=== PATIENT | female | born 1990 | race African-American/Black ===

== ENCOUNTER 2016-09-15 00:28 | Emergency (ER) | payer SELFPAY ==
[2016-09-15 00:45] VITALS: BP 186/122
== END 2016-09-15 00:50 | disposition left against medical advice (07) ==
LOC: ER 00:28
DX: Z53.21 Procedure and treatment not carried out due to patient leaving prior to being seen by health care provider (principal)

== ENCOUNTER 2017-02-03 11:05 | Emergency (ER) | payer OTHER, MEDICAID ==
[2017-02-03] MEDS ORDERED: METOCLOPRAMIDE HCL INJ/PF 10 MG/2 ML SDV IV ONE (11:45)
[2017-02-03] MEDS ORDERED: DIPHENHYDRAMINE HCL 50 MG/ML VIAL IV ONE (11:45)
[2017-02-03] MEDS ORDERED: NORMAL SALINE 1000 ML 1,000 ML IV PRN (11:45)
--- NOTE | 2017-02-03 11:50 | ER Document Report ---
ED Medical Screen (RME) - General Chief Complaint: Headache >24 hrs old Stated Complaint: ABDONMIAL PAIN Time Seen by Provider: 02/03/17 11:25 Mode of Arrival: Ambulatory Information source: Patient TRAVEL OUTSIDE OF THE [place] IN LAST 30 DAYS: No - HPI Patient complains to provider of: headache, elevated BP Onset: Other - 3 days Onset/Duration: Persistent Quality of pain: Achy, Fullness, Pressure Severity: Moderate Pain Level: 3 Associated Symptoms: Nausea Recently seen / treated by doctor: Yes Notes: 02/03/17 11:48 Patient is a 26-year-old female who is , currently 19 weeks and 5 days , by dates, presents to the emergency room complaining of headache 3 days duration with abdominal cramping, no vaginal bleeding, nausea that started this morning, no vomiting, no fever, no dysuria or hematuria, no vaginal bleeding, she has a history of elevated blood pressure during in the past but no history of hypertension when not , she is currently taking labetalol twice daily, blood pressure at time of triage is 177/98 Patient was briefly discussed with Dr. Nasra Myers, CLOTHES MARKER, who reports that she is not technically diagnosed with preeclampsia because she is under 20 weeks , recommend patient's headache be treated in the emergency room - Related Data Allergies/Adverse Reactions: No Known Allergies Allergy (Verified 11/06/15 13:14) Past Medical History - Social History Frequency of alcohol use: None Drug Abuse: None - Past Medical History Cardiac Medical History: Reports: Hx Hypertension Renal/ Medical History: Reports: Hx Ovarian Cysts. 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
[2017-02-03 12:35] LABS: APPEARANCE,URINE SLIGHTLY-CLOUDY; BILIRUBIN,URINE NEGATIVE (NEGATIVE); GLUCOSE, URINE >=500 mg/dL (NEGATIVE); KETONES,URINE NEGATIVE (NEGATIVE); LEUKOCYTE ESTERASE,URINE NEGATIVE (NEGATIVE); NITRITE,URINE NEGATIVE (NEGATIVE); PROTEIN,URINE NEGATIVE (NEGATIVE); URINE SPECIFIC GRAVITY 1.011; UROBILINOGEN,URINE NEGATIVE mg/dL (<2.0)
[2017-02-03 12:37] LABS: ABSOLUTE BASOPHILS # (AUTO) 0.1 10^3/uL (0.0-0.2); ABSOLUTE EOSINOPHILS # (AUTO) 0.1 10^3/uL (0.0-0.6); ABSOLUTE MONOCYTES (AUTO) 1.2 10^3/uL (0.1-1.4); BASOPHILS % (AUTO) 0.3 % (0-2); EOSINOPHILS % (AUTO) 0.8 % (0-6); HEMATOCRIT 35.9 % (36.0-47.0); HEMOGLOBIN 11.9 g/dL (12.0-15.5); HGB HCT DIFFERENCE -0.2; LYMPHOCYTES % (AUTO) 11.3 % (13-45); MEAN CORPUSCULAR HEMOGLOBIN 28.3 pg (27.0-33.4); MEAN CORPUSCULAR VOLUME 86 fl (80-97); MONOCYTES % (AUTO) 6.9 % (3-13); RED BLOOD COUNT 4.19 10^6/uL (3.72-5.28); RED CELL DISTRIBUTION WIDTH 14.1 % (11.5-14.0); SEGMENTED NEUTROPHILS % (AUTO) 80.7 % (42-78); WHITE BLOOD COUNT 17.3 10^3/uL (4.0-10.5)
[2017-02-03 12:55] LABS: ALANINE AMINOTRANSFERASE 40 U/L (9-52); ALBUMIN 3.7 g/dL (3.5-5.0); ALKALINE PHOSPHATASE 56 U/L (38-126); ANION GAP 12 (5-19); ASPARTATE AMINO TRANSFERASE 24 U/L (14-36); BILIRUBIN,DIRECT 0.3 mg/dL (0.0-0.4); BILIRUBIN,TOTAL 0.4 mg/dL (0.2-1.3); BLOOD UREA NITROGEN 6 mg/dL (7-20); CALCIUM 9.4 mg/dL (8.4-10.2); CARBON DIOXIDE 21 mmol/L (22-30); CHLORIDE 103 mmol/L (98-107); CREATININE RESULT 0.41 mg/dL (0.52-1.25); GLUCOSE 111 mg/dL (75-110); LDH 417 U/L (313-618); POTASSIUM 4.2 mmol/L (3.6-5.0); SODIUM 136.4 mmol/L (137-145); TOTAL PROTEIN 7.1 g/dL (6.3-8.2); URIC ACID 4.2 mg/dL (2.5-6.2)
--- NOTE | 2017-02-03 13:38 | ER Document Report ---
ED General - General Chief Complaint: Headache >24 hrs old Stated Complaint: ABDONMIAL PAIN Time Seen by Provider: 02/03/17 11:25 Mode of Arrival: Ambulatory TRAVEL OUTSIDE OF THE [place] IN LAST 30 DAYS: No - HPI Patient complains to provider of: Headache abdominal pain elevated blood pressure Notes: Patient is coming in for headache abdominal pain elevated blood pressure. Patient is approximately 19 weeks and 5 days. Patient is a patient states history of elevated blood pressure and preeclampsia of her first . Patient is currently on labetalol 200 mg twice a day for blood pressure issues. Patient states global headache no history of trauma. Patient has been trying Tylenol at home for her headache however there is no resolution therefore came to the ER. - Related Data Allergies/Adverse Reactions: No Known Allergies Allergy (Verified 11/06/15 13:14) Past Medical History - General Information source: Patient - Social History Smoking Status: Never Smoker Frequency of alcohol use: None Drug Abuse: None Family History: CVA, DM, Hyperlipidemia, Hypertension. denies: Arthritis, CAD, COPD Patient has suicidal ideation: No Patient has homicidal ideation: No - Past Medical History Cardiac Medical History: Reports: Hx Hypertension Renal/ Medical History: Reports: Hx Ovarian Cysts. 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 - Immunizations Immunizations up to date: Yes Hx Diphtheria, Pertussis, Tetanus Vaccination: Yes - 2009 Review of Systems - Review of Systems Constitutional: No symptoms reported EENT: No symptoms reported Cardiovascular: No symptoms reported Respiratory: No symptoms reported Gastrointestinal: No symptoms reported Genitourinary: No symptoms reported Female Genitourinary: No symptoms reported Musculoskeletal: No symptoms reported Skin: No symptoms reported Hematologic/Lymphatic: No symptoms reported Neurological/Psychological: Headaches Physical Exam - Vital signs Vitals: Temp Pulse Resp BP Pulse Ox 98.1 F 95 18 177/80 H 100 02/03/17 11:20 02/03/17 11:20 02/03/17 11:20 02/03/17 11:20 02/03/17 11:20 Interpretation: Normal - General General appearance: Appears well, Alert - HEENT Head: Normocephalic, Atraumatic Eyes: Normal Pupils: PERRL - Respiratory Respiratory status: No respiratory distress Chest status: Nontender Breath sounds: Normal Chest palpation: Normal - Cardiovascular Rhythm: Regular Heart sounds: Normal auscultation Murmur: No - Abdominal Inspection: Normal, Gravid female Distension: No distension Bowel sounds: Normal Tenderness: Nontender Organomegaly: No organomegaly - Back Back: Normal, Nontender - Extremities General upper extremity: Normal inspection, Nontender, Normal color, Normal ROM , Normal temperature General lower extremity: Normal inspection, Nontender, Normal color, Normal ROM , Normal temperature, Normal weight bearing. No: Aman's sign - Neurological Neuro grossly intact: Yes Cognition: Normal Orientation: AAOx4 [place] Coma Scale Eye Opening: Spontaneous [place] Coma Scale Verbal: Oriented [place] Coma Scale Motor: Obeys Commands [place] Coma Scale Total: 15 Speech: Normal Motor strength normal: LUE, RUE, LLE, RLE Sensory: Normal - Psychological Associated symptoms: Normal affect, Normal mood - Skin Skin Temperature: Warm Skin Moisture: Dry Skin Color: Normal Course - Re-evaluation Re-evalutation: 02/03/17 18:32 In for evaluation of headache hypertension patient is also . Bedside ultrasound showed heart rate 143. Patient headache resolved after IV medications. Blood pressure has decreased to 160 systolic. I did discuss lab results with [facility] and they will follow-up with the patient tomorrow morning 02/03/17 18:34 - Vital Signs Vital signs: Temp Pulse Resp BP Pulse Ox 98.1 F 89 16 142/83 H 98 02/03/17 14:11 02/03/17 14:11 02/03/17 14:11 02/03/17 14:11 02/03/17 14:11 - Laboratory Result Diagrams: 02/03/17 12:00 02/03/17 12:00 Laboratory results interpreted by me: 02/03/17 02/03/17 02/03/17 12:00 12:00 12:15 WBC 17.3 H Hgb 11.9 L Hct 35.9 L RDW 14.1 H Seg Neutrophils % 80.7 H Lymphocytes % 11.3 L Absolute Neutrophils 14.0 H Sodium 136.4 L Carbon Dioxide 21 L BUN 6 L Creatinine 0.41 L Glucose 111 H Urine Glucose (UA) >=500 H Discharge - Discharge Clinical Impression: Hypertension in Headache Qualifiers: Headache type: unspecified Headache chronicity pattern: unspecified pattern Intractability: not intractable Qualified Code(s): R51 - Headache Condition: Good Disposition: HOME, SELF-CARE Instructions: Headache ([facility]), ([facility]) Additional Instructions: Take medication as prescribed. Return to the ER symptoms worsen. Follow-up with your primary care physician. You have been seen for vomiting during . You should continue to drink plenty of water and consider taking a solution such as Pedialyte if your having difficulty eating food. Please return if you become unable to drink any fluids for more than 12 hours, urinate less than twice a day, pass out, or have any other symptoms that are concerning to you. For nausea and vomiting during I recomment: Start with 10-12.5 mg of pyridoxine (vitamin B6) three times a day for 2 days. If not fully effective, Increase to 12.5 mg of pyridoxine four times a day for 2 days. If not fully effective, Increase to 25 mg of pyridoxine three times a day for 2 days. If not fully effective, Continue 25 mg pyridoxine 3 times a day, and add 12.5 mg of doxylamine before bedtime each day for 2 days. If not fully effective, Continue 25 mg pyridoxine 3 times a day, and take 12.5 mg of doxylamine twice a day. If not fully effective, Continue 25 mg pyridoxine 3 times a day, and take 12.5 mg of doxylamine three times a day. If not fully effective, Continue 25 mg pyridoxine 3 times a day, and 12.5 mg of doxylamine 3 times a day , while adding Emetrol, one to two tablespoons (15-30 cc) taken once or twice a day as needed. (Emetrol is an [id number] mixture of sugar syrups and phosphoric acid [phosphorylated carbohydrate solution]) that acts by soothing the actual wall of the gastrointestinal tract). If not fully effective, Consult with your doctor. Prescriptions: Metoclopramide HCl [Reglan] 5 mg PO Q6 #20 tablet Juw558/FA/Omega3/Dha/Fish Oil [ Gummies] 1 each PO DAILY #30 tab.chew Referrals: MARQUES RAYGOZA MD [Primary Care Provider] - Follow up tomorrow
[2017-02-03 14:12] VITALS: BP 142/83
== END 2017-02-03 14:40 | disposition home or self-care (01) ==
LOC: ER 11:05
DX: O16.9 Unspecified maternal hypertension, unspecified trimester (principal); O26.899 Other specified pregnancy related conditions, unspecified trimester; R51 Headache; R10.9 Unspecified abdominal pain; Z3A.00 Weeks of gestation of pregnancy not specified; Z79.899 Other long term (current) drug therapy
CPT/HCPCS: 99284; 96361; 96374; 96375; 36415; 83615; 84550; 85025; 80053; 81001; J1200; J2765; J7030

== ENCOUNTER 2017-03-09 15:56 | Outpatient (CLI) | payer OTHER, MEDICAID ==
[2017-03-09] MEDS ORDERED: ACETAMINOPHEN 325 MG TABLET PO ONE (16:41)
[2017-03-09] MEDS ORDERED: ACETAMINOPHEN 325 MG TABLET ONE (16:53)
[2017-03-09 16:55] LABS: APPEARANCE,URINE SLIGHTLY-CLOUDY; BILIRUBIN,URINE NEGATIVE (NEGATIVE); GLUCOSE, URINE 50 mg/dL (NEGATIVE); KETONES,URINE NEGATIVE (NEGATIVE); LEUKOCYTE ESTERASE,URINE NEGATIVE (NEGATIVE); NITRITE,URINE NEGATIVE (NEGATIVE); PROTEIN,URINE 100 mg/dL (NEGATIVE); URINE SPECIFIC GRAVITY 1.014; UROBILINOGEN,URINE NEGATIVE mg/dL (<2.0)
[2017-03-09 17:05] LABS: URINE BARBITURATES SCREEN NEGATIVE; URINE METHADONE SCREEN NEGATIVE; URINE OPIATES LOW NEGATIVE; URINE PHENCYCLIDINE SCREEN NEGATIVE
[2017-03-09] MEDS ORDERED: LABETALOL HCL 200 MG TABLET ONE (17:08)
[2017-03-09 17:31] LABS: ABSOLUTE BASOPHILS # (AUTO) 0.1 10^3/uL (0.0-0.2); ABSOLUTE EOSINOPHILS # (AUTO) 0.2 10^3/uL (0.0-0.6); ABSOLUTE LYMPHOCYTES (AUTO) 2.3 10^3/uL (0.5-4.7); ABSOLUTE MONOCYTES (AUTO) 1.6 10^3/uL (0.1-1.4); ABSOLUTE NEUT (AUTO) 14.1 10^3/uL (1.7-8.2); BASOPHILS % (AUTO) 0.3 % (0-2); EOSINOPHILS % (AUTO) 0.9 % (0-6); HEMATOCRIT 38.6 % (36.0-47.0); HEMOGLOBIN 12.3 g/dL (12.0-15.5); HGB HCT DIFFERENCE -1.7; LYMPHOCYTES % (AUTO) 12.5 % (13-45); MEAN CORPUSCULAR HEMOGLOBIN 27.8 pg (27.0-33.4); MEAN CORPUSCULAR VOLUME 87 fl (80-97); MONOCYTES % (AUTO) 8.6 % (3-13); RED BLOOD COUNT 4.44 10^6/uL (3.72-5.28); RED CELL DISTRIBUTION WIDTH 13.6 % (11.5-14.0); SEGMENTED NEUTROPHILS % (AUTO) 77.7 % (42-78); WHITE BLOOD COUNT 18.2 10^3/uL (4.0-10.5)
[2017-03-09 17:50] LABS: ALANINE AMINOTRANSFERASE 28 U/L (9-52); ALBUMIN 3.7 g/dL (3.5-5.0); ALKALINE PHOSPHATASE 78 U/L (38-126); ANION GAP 11 (5-19); ASPARTATE AMINO TRANSFERASE 19 U/L (14-36); BILIRUBIN,DIRECT 0.2 mg/dL (0.0-0.4); BILIRUBIN,TOTAL 0.4 mg/dL (0.2-1.3); BLOOD UREA NITROGEN 6 mg/dL (7-20); CALCIUM 9.6 mg/dL (8.4-10.2); CARBON DIOXIDE 21 mmol/L (22-30); CHLORIDE 105 mmol/L (98-107); CREATININE RESULT 0.46 mg/dL (0.52-1.25); GLUCOSE 83 mg/dL (75-110); LDH 403 U/L (313-618); TOTAL PROTEIN 7.1 g/dL (6.3-8.2); URIC ACID 4.2 mg/dL (2.5-6.2)
[2017-03-09] MEDS ORDERED: LABETALOL HCL 200 MG TABLET PO SCH (18:00)
[2017-03-09] MEDS ORDERED: HYDRALAZINE HCL INJ/PF 20 MG/1 ML SDV IV ONE (18:02)
[2017-03-09] MEDS ORDERED: HYDRALAZINE HCL INJ/PF 20 MG/1 ML SDV ONE (18:08)
[2017-03-09 18:18] LABS: URINE CREATININE 124.1 mg/dL (16-327)
[2017-03-09 18:26] LABS: URINE PROTEIN 263.4 mg/dL (<12)
[2017-03-09 19:48] LABS: TOTAL RBC COUNT 2041; TYPE IN FILE? TYPE IN FILE; VOL OF FETOMATERNAL HEMORRHAGE 0 ML (0)
== END 2017-03-09 19:33 | disposition home or self-care (01) ==
LOC: LC 15:56
PROVIDERS: ATTEND Obstetrics & Gynecology
PROC: 4A1HXCZ Monitoring of Products of Conception, Cardiac Rate, External Approach (ICD-10-PCS; principal; 2017-03-09)
DX: O10.912 Unspecified pre-existing hypertension complicating pregnancy, second trimester (principal); Z3A.24 24 weeks gestation of pregnancy
CPT/HCPCS: 59899; 36415; 83615; 84156; 84550; 82570; 85025; 80053; 81001; 85460; 80307; J0360

== ENCOUNTER 2017-03-29 01:37 | Inpatient (IN) | payer OTHER, MEDICAID ==
[2017-03-29] MEDS ORDERED: BETAMET ACET/BETAMET NA INJ 6 MG/1 ML ONE (01:54)
[2017-03-29] MEDS ORDERED: MISOPROSTOL 0.2 MG TABLET ONE (02:00)
[2017-03-29] MEDS ORDERED: CARBOPROST TROMETHAMINE INJ 250 MCG/1 ML AMPULE ONE ×3 (02:00→02:42)
[2017-03-29] MEDS ORDERED: RINGERS SOLUTION,LACTATED 1,000 ML IV PRN (02:02)
[2017-03-29] MEDS ORDERED: FENTANYL CITRATE INJ/PF 100 MCG/2 ML AMPUL ONE ×2 (02:11→04:42)
[2017-03-29] MEDS ORDERED: EPHEDRINE SULFATE INJ 50 MG/1 ML AMPULE ONE (02:11)
[2017-03-29] MEDS ORDERED: CEFAZOLIN 2 GM/D5W RTU 2 GM/50 ML RTUPB IV ONE (02:11)
[2017-03-29] MEDS ORDERED: OXYTOCIN 10 UNIT/ML VIAL ONE ×2 (02:20→02:33)
[2017-03-29] MEDS ORDERED: OXYTOCIN/NORMAL SALINE 20 UNIT/1,000 ML RTUINJ ONE ×2 (02:39→03:59)
[2017-03-29 02:51] LABS: ABSOLUTE EOSINOPHILS # (AUTO) 0.1 10^3/uL (0.0-0.6); ABSOLUTE LYMPHOCYTES (AUTO) 2.5 10^3/uL (0.5-4.7); ABSOLUTE MONOCYTES (AUTO) 1.5 10^3/uL (0.1-1.4); ABSOLUTE NEUT (AUTO) 11.6 10^3/uL (1.7-8.2); ALANINE AMINOTRANSFERASE 34 U/L (9-52); ALBUMIN 3.2 g/dL (3.5-5.0); ALKALINE PHOSPHATASE 84 U/L (38-126); ANION GAP 9 (5-19); ASPARTATE AMINO TRANSFERASE 28 U/L (14-36); BASOPHILS % (AUTO) 0.3 % (0-2); BILIRUBIN,DIRECT 0.2 mg/dL (0.0-0.4); BILIRUBIN,TOTAL 0.5 mg/dL (0.2-1.3); BLOOD UREA NITROGEN 4 mg/dL (7-20); CALCIUM 8.9 mg/dL (8.4-10.2); CARBON DIOXIDE 19 mmol/L (22-30); CHLORIDE 106 mmol/L (98-107); CREATININE RESULT 0.42 mg/dL (0.52-1.25); EOSINOPHILS % (AUTO) 0.7 % (0-6); GLUCOSE 86 mg/dL (75-110); HEMATOCRIT 30.7 % (36.0-47.0); HEMOGLOBIN 10.2 g/dL (12.0-15.5); HGB HCT DIFFERENCE -0.1; LDH 555 U/L (313-618); LYMPHOCYTES % (AUTO) 15.8 % (13-45); MEAN CORPUSCULAR HEMOGLOBIN 28.7 pg (27.0-33.4); MEAN CORPUSCULAR HGB CONC 33.1 g/dL (32.0-36.0); MEAN CORPUSCULAR VOLUME 87 fl (80-97); MONOCYTES % (AUTO) 9.2 % (3-13); POTASSIUM 4.6 mmol/L (3.6-5.0); RED BLOOD COUNT 3.54 10^6/uL (3.72-5.28); RED CELL DISTRIBUTION WIDTH 13.7 % (11.5-14.0); SODIUM 134.4 mmol/L (137-145); TOTAL PROTEIN 6.2 g/dL (6.3-8.2); URIC ACID 4.2 mg/dL (2.5-6.2); WHITE BLOOD COUNT 15.7 10^3/uL (4.0-10.5)
[2017-03-29 02:57] LABS: PROTHROMBIN TIME 15.1 SEC (11.4-15.4)
[2017-03-29 02:58] LABS: FIBRINOGEN 151 mg/dL (209-497); PARTIAL THROMBOPLASTIN TIME 34.3 SEC (23.5-35.8)
[2017-03-29 03:12] LABS: APPEARANCE,URINE CLEAR; BILIRUBIN,URINE NEGATIVE (NEGATIVE); GLUCOSE, URINE NEGATIVE (NEGATIVE); KETONES,URINE NEGATIVE (NEGATIVE); LEUKOCYTE ESTERASE,URINE NEGATIVE (NEGATIVE); NITRITE,URINE NEGATIVE (NEGATIVE); PROTEIN,URINE 30 mg/dL (NEGATIVE); URINE SPECIFIC GRAVITY 1.002; UROBILINOGEN,URINE NEGATIVE mg/dL (<2.0)
[2017-03-29 03:15] LABS: URINE BARBITURATES SCREEN NEGATIVE; URINE METHADONE SCREEN NEGATIVE; URINE OPIATES LOW NEGATIVE; URINE PHENCYCLIDINE SCREEN NEGATIVE
[2017-03-29] MEDS ORDERED: MORPHINE SULFATE 10 MG/ML INJ ONE ×2 (03:16→06:03)
[2017-03-29] MEDS ORDERED: ACETAMINOPHEN 100 ML IV ONE ×2 (03:47→05:00)
[2017-03-29] MEDS ORDERED: HYDRALAZINE HCL INJ/PF 20 MG/1 ML SDV ONE (03:53)
[2017-03-29] MEDS ORDERED: OXYCODONE-ACETAMINOPHEN 5-325 MG TABLET PO PRN ×3 (04:00→04:02)
[2017-03-29] MEDS ORDERED: DEXTROSE 40% GEL 15 GM TUBE PO PRN ×2 (04:00)
[2017-03-29] MEDS ORDERED: ACETAMINOPHEN 325 MG TABLET PO PRN (04:00)
[2017-03-29] MEDS ORDERED: HYDROMORPHONE HCL INJ/PF 2 MG/ML AMPULE IV PRN ×2 (04:00→18:17)
[2017-03-29] MEDS ORDERED: SIMETHICONE 80 MG TAB.CHEW PO PRN (04:00)
[2017-03-29] MEDS ORDERED: DIPH/PERTUSS(ACELL)/TETANUS VAC/PF 0.5 ML SYR (>=10YO) IM PRN (04:00)
[2017-03-29] MEDS ORDERED: DEXTROSE 50%-WATER 25 GM/50 ML DISP.SYRIN IV PRN ×2 (04:00)
[2017-03-29] MEDS ORDERED: MEASLES,MUMPS&RUBELLA VACC/PF 0.5 ML VIAL SUBCUT PRN (04:00)
[2017-03-29] MEDS ORDERED: GLUCAGON,HUMAN RECOMB 1 MG INJ SUBCUT PRN (04:00)
[2017-03-29] MEDS ORDERED: PROMETHAZINE HCL INJ 25 MG/1 ML VIAL IV PRN ×3 (04:00→04:02)
[2017-03-29] MEDS ORDERED: FENTANYL CITRATE INJ/PF 100 MCG/2 ML AMPUL IV PRN ×2 (04:02)
[2017-03-29] MEDS ORDERED: ONDANSETRON HCL INJ/PF 4 MG/2 ML SDV IV PRN (04:02)
[2017-03-29] MEDS ORDERED: DIPHENHYDRAMINE HCL 50 MG/ML VIAL IV PRN (04:02)
[2017-03-29] MEDS ORDERED: MORPHINE SULFATE 10 MG/ML INJ IV PRN (04:02)
[2017-03-29] MEDS ORDERED: MEPERIDINE HCL/PF INJ 25 MG/1 ML DISP.SYRIN IV PRN (04:02)
[2017-03-29] MEDS ORDERED: MAGNESIUM SULFATE 4 GM/100 ML RTUPB IV ONE (04:17)
[2017-03-29] MEDS: FENTANYL CITRATE INJ/PF 100 MCG/2 ML AMPUL IV PRN ×2 (04:43→05:08)
[2017-03-29] MEDS ORDERED: MAGNESIUM SULFATE 500 ML IV PRN (04:50)
[2017-03-29] MEDS ORDERED: MAGNESIUM SULFATE 20 GM/500 ML RTUINJ IV PRN (04:51)
--- NOTE | 2017-03-29 04:51 | Brief Operative Note ---
BRIEF OPERATIVE REPORT DATE OF SURGERY: 03/29/17 TIME OF SURGERY: 03:00 PREOPERATIVE DIAGNOSIS: PUND at 27+4, H/o C/S x 2 and h/o abruption at 31wks, CHTN, Abruption POSTOPERATIVE DIAGNOSIS: AYE - complete placental abruption. SURGEON: WILL DINERO 1ST BIOLOGY DEPARTMENT CHAIR: SARAN DUNAWAY FINDINGS: VMI, cephalic presentation. Couvelier uterus throughout with poor tone - Intrauterine hemabate x 2 given, intrauterine pitocin 10units given x 1. Complete placental abruption with approximately 1 liter of blood in uterus. Right tube/ovary surgically absent. Time of 0316, Apgars 1/6/7. Sugical EBL 1000ml, UOP 150ml, IVF 2500ml, 2 units PRBCs given. YOSVANY drain placed COMPLICATIONS: Complete placental abruption ESTIMATED BLOOD LOSS: 1000ml TISSUE REMOVED OR ALTERED: placenta and cord - sent to pathology TECHNICAL PROCEDURE: Repeat LTCS
--- NOTE | 2017-03-29 05:07 | Operative Report ---
Operative Report DATE OF SURGERY: 03/29/17 PREOPERATIVE DIAGNOSIS: PUND at 27+4, H/o C/S x 2 and h/o abruption at 31wks, CHTN, Abruption POSTOPERATIVE DIAGNOSIS: AYE - complete placental abruption. OPERATION: Repeat LTCS SURGEON: WILL DINERO 1ST GRAPPLE YARDER OPERATOR: SARAN DUNAWAY ANESTHESIA: GA TISSUE REMOVED OR ALTERED: placenta and cord - sent to pathology ESTIMATED BLOOD LOSS: 1000ml INTRAOPERATIVE FINDINGS: VMI, cephalic presentation. Couvelier uterus throughout with poor tone - Intrauterine hemabate x 2 given, intrauterine pitocin 10units given x 1. Complete placental abruption with approximately 1 liter of blood in uterus. Right tube/ovary surgically absent. Time of 0316, Apgars 08/30/7. Sugical EBL 1000ml, UOP 150ml, IVF 2500ml, 2 units PRBCs given. YOSVANY drain placed PROCEDURE: Estimated blood loss: [1000ml surgical EBL, approximately 1000ml abruption] Urine output: [150ml] IV fluids: [2500ml] Complications: [Abruption] Indications: [26yo at 27+4ega presented with significant vaginal bleeding and severe abdominal pain. She had noted intermittent headache throughout the day. Bleeding began at approximately [id number] but did not become severe until arrival to hospital per patient. History significant for CHTN on 400mg of Labetolol and h/o abruption and PreE with G1 at 31wks. Exam revealed abdomen very tender to palpation and vaginal exam revealed cervix closed but distended into vagina with active bright red bleeding noted. FHR 110. BP 247/127 and then repeat 219/121. Reviewed recommendations for emergent section due to Abruption. Consents reviewed and obtained. Reviewed risks of need for transfusion, need for hysterectomy, maternal/ morbidity and mortality. NICU team notified.] Procedure: The patient was taken to the operating room and prepped and draped in the normal sterile fashion and placed in the dorsal supine position with a leftward tilt and general anesthesia obtained. A Pfannenstiel skin incision was then made and carried through to the underlying layers of the fascia with the scalpel. The fascia was incised in the midline and the incision extended laterally with the Douglas scissors. The superior aspect of the fascial incision was then grasped with [place] clamps elevated and the underlying rectus muscles dissected off [bluntly]. Attention was then turned to the inferior aspect of the fascial incision which in a similar fashion was grasped, tented up with John clamps, and the rectus muscles dissected off [sharply]. The rectus muscles were then in the midline and the peritoneum at the amount identified and entered [sharply]. The peritoneal incision was then extended superiorly and inferiorly with good visualization of the bladder. The lower uterine segment incised in a transverse fashion with the scalpel. The uterine incision was then extended bluntly and large amount of clot delivered prior to head. The bladder blade was removed and the 's head was delivered from cephalic presentation atraumatically. The nose and mouth were suctioned and the cord doubly clamped and cut. And the was handed off to waiting pediatricians. The placenta delivered with baby and noted complete abruption. was then delivered spontaneously and and the uterus exteriorized and cleared of all clots and debris. The uterine incision was then repaired with 1-0 Vicryl in a running locked fashion. A second layer of the same suture was used to obtain hemostasis via imbrication of the initial layer. The uterine serosa was then repaired with 3-0 chromic in a running fashion over the uterine incision. Poor uterine tone noted throughout and therefore intrauterine hemabate and intrauterine pitocin given as noted above. Due to estimated blood loss 2 units PRBCs transfusion initiated. The uterus was returned to the patient's abdomen and Surgicel was placed overlying the uterine incision for hemostasis. The gutters were cleared of all clots and debris. All operative sites were noted to be hemostatic. The fascia was reapproximated with 0 Vicryl in a running fashion from each lateral edge to the midline. YOSVANY drain placed with drain to patients right. The skin was closed with [place] with overlying pressure dressing. The patient tolerated the procedure well. Sponge lap needle and instrument counts are correct times 2. 2 g of Ancef were given prior to skin incision. The patient was taken to the recovery area awake and in stable condition.
[2017-03-29 05:12] LABS: URINE CREATININE 28.2 mg/dL (16-327); URINE PROTEIN 54.1 mg/dL (<12)
[2017-03-29 05:12] LABS: PROTHROMBIN TIME 16.3 SEC (11.4-15.4)
[2017-03-29 05:13] LABS: PARTIAL THROMBOPLASTIN TIME 28.4 SEC (23.5-35.8)
[2017-03-29 05:19] LABS: ALANINE AMINOTRANSFERASE 25 U/L (9-52); ALBUMIN 2.5 g/dL (3.5-5.0); ALKALINE PHOSPHATASE 79 U/L (38-126); ANION GAP 7 (5-19); ASPARTATE AMINO TRANSFERASE 30 U/L (14-36); BILIRUBIN,DIRECT 0.2 mg/dL (0.0-0.4); BILIRUBIN,TOTAL 0.4 mg/dL (0.2-1.3); BLOOD UREA NITROGEN 4 mg/dL (7-20); CALCIUM 7.8 mg/dL (8.4-10.2); CARBON DIOXIDE 19 mmol/L (22-30); CHLORIDE 107 mmol/L (98-107); CREATININE RESULT 0.37 mg/dL (0.52-1.25); GLUCOSE 106 mg/dL (75-110); LDH 732 U/L (313-618); SODIUM 133.1 mmol/L (137-145); TOTAL PROTEIN 5.1 g/dL (6.3-8.2); URIC ACID 3.7 mg/dL (2.5-6.2)
[2017-03-29 05:20] LABS: FIBRINOGEN 126 mg/dL (209-497)
[2017-03-29 05:21] LABS: HEMATOCRIT 33.3 % (36.0-47.0); HEMOGLOBIN 11.1 g/dL (12.0-15.5); MEAN CORPUSCULAR HEMOGLOBIN 28.9 pg (27.0-33.4); MEAN CORPUSCULAR HGB CONC 33.4 g/dL (32.0-36.0); MEAN CORPUSCULAR VOLUME 87 fl (80-97); RED BLOOD COUNT 3.85 10^6/uL (3.72-5.28); RED CELL DISTRIBUTION WIDTH 13.9 % (11.5-14.0); WHITE BLOOD COUNT 29.5 10^3/uL (4.0-10.5)
[2017-03-29 05:31] LABS: POTASSIUM 3.6 mmol/L (3.6-5.0)
[2017-03-29 05:56] LABS: BASOPHILS % (MANUAL) 0 % (0-2); EOSINOPHILS % (MANUAL) 0 % (0-6); LYMPHOCYTES % (MANUAL) 5 % (13-45); TOTAL CELLS COUNTED 100
[2017-03-29 05:57] LABS: BURR CELLS SLIGHT; OVALOCYTES SLIGHT; POIKILOCYTOSIS SLIGHT; POLYCHROMASIA SLIGHT; TOXIC GRANULATION SLIGHT
--- NOTE | 2017-03-29 07:53 | Delivery Summary ---
Del Sum A-C Datetime Report Generated by CPN: 03/29/2017 07:53 DELIVERY PERSONNEL DELIVERY PERSONNEL: [id number] Delivery Doctor:: Teri Myers MD Anesthesiologist:: Chantell Yang MD CIGAR BANDER HAND:: Oralia Ayers Labor and Delivery Nurse:: Danay BlancoCR calles Homebirth Midwife/RESISTOR WINDER: [facility]/RESISTOR WINDER: [facility] Additional Personnel: : john paul torres CNA MATERNAL INFORMATION Delivery Anesthesia: General Medications After Delivery: Pitocin Bolus-Please Comment; Pitocin Drip 20 Units/1000ml NSS; Other-Please Comment Meds After Delivery Comment: cytotec 1000mcg VT, hemabate x2 amps Maternal Complications: Abruptio Placenta LABOR SUMMARY EDC: 06/24/2017 00:00 No. Babies in Womb: 1 Attempted: No LABOR INFORMATION Reason for Induction: Not Applicable Group B Beta Strep: unknown Steroids Given: Partial Course MEMBRANES Membranes Rupture Method: Spontaneous Rupture of Membranes: 03/29/2017 03:14 Length of Rupture (hr): -0.97 Amniotic Fluid Color: Clear Amniotic Fluid Amount: Scant Amniotic Fluid Odor: Normal CSECTION DELIVERY Primary Indication: Repeat Elective Secondary Indication: Abruptio Placenta CSection Urgency: Emergency CSection Incidence: Repeat Labor: No Labor CSection Incision: Lower Uterine Transverse BABY A INFORMATION Infant Delivery Date/Time: 03/29/2017 02:16 Method of Delivery: Born in Route : No : N/A Forceps: N/A Vacuum Extraction: N/A Shoulder Dystocia : No PRESENTATION/POSITION BABY A Presentation: Cephalic Cephalic Presentation: N/A Breech Presentation: N/A INFORMATION BABY A Gestational Age at Delivery: 27.4 Gestational Status: - <34 Weeks Outcome : Liveborn Condition : Stable Sex: Male IDENTIFICATION BABY A Infant Verification Date/Time: 03/29/2017 02:55 ID Band Number: [id number] Mother's Name Verified: Yes RN Verifying Infant: Chalman, A. RN Additional Verifying Personnel: Torres, A. RN WEIGHT/LENGTH BABY A Infant Birthweight (gm): 1040 Infant Weight (lb): 2 Weight (oz): 5 CORD INFORMATION BABY A No. Cord Vessels: 3 Nuchal Cord : N/A Cord Blood Taken: N/A ASSESSMENT BABY A Skin to Skin: No
[2017-03-29] MEDS: OXYTOCIN/NORMAL SALINE 20 UNIT/1,000 ML RTUINJ IV SCH ×3 (08:35→15:27)
[2017-03-29] MEDS ORDERED: OXYCODONE-ACETAMINOPHEN 5-325 MG TABLET ONE ×2 (08:47→14:27)
[2017-03-29] MEDS: PRENATAL VITAMIN W-O CA NO5/FE FUMARATE/FA CAPSULE PO SCH (10:31)
[2017-03-29] MEDS ORDERED: PRENATAL VITAMIN W-O CA NO5/FE FUMARATE/FA CAPSULE ONE (10:31)
[2017-03-29] MEDS ORDERED: DOCUSATE SODIUM 100 MG CAPSULE ONE (10:31)
[2017-03-29] MEDS: DOCUSATE SODIUM 100 MG CAPSULE PO SCH ×2 (10:31→23:29)
[2017-03-29] MEDS: OXYCODONE-ACETAMINOPHEN 5-325 MG TABLET PO PRN ×2 (14:26→21:09)
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
[2017-03-29 18:36] LABS: ALANINE AMINOTRANSFERASE 32 U/L (9-52); ALBUMIN 2.8 g/dL (3.5-5.0); ALKALINE PHOSPHATASE 72 U/L (38-126); ANION GAP 7 (5-19); ASPARTATE AMINO TRANSFERASE 35 U/L (14-36); BILIRUBIN,DIRECT 0.2 mg/dL (0.0-0.4); BILIRUBIN,TOTAL 0.4 mg/dL (0.2-1.3); BLOOD UREA NITROGEN 3 mg/dL (7-20); CALCIUM 7.8 mg/dL (8.4-10.2); CARBON DIOXIDE 23 mmol/L (22-30); CHLORIDE 107 mmol/L (98-107); CREATININE RESULT 0.45 mg/dL (0.52-1.25); GLUCOSE 84 mg/dL (75-110); LDH 733 U/L (313-618); POTASSIUM 4.3 mmol/L (3.6-5.0); SODIUM 136.7 mmol/L (137-145); TOTAL PROTEIN 5.6 g/dL (6.3-8.2); URIC ACID 4.1 mg/dL (2.5-6.2)
[2017-03-29 18:50] LABS: HEMATOCRIT 25.6 % (36.0-47.0); HGB HCT DIFFERENCE 0.2; MEAN CORPUSCULAR HEMOGLOBIN 29.2 pg (27.0-33.4); MEAN CORPUSCULAR HGB CONC 33.6 g/dL (32.0-36.0); MEAN CORPUSCULAR VOLUME 87 fl (80-97); RED BLOOD COUNT 2.94 10^6/uL (3.72-5.28); RED CELL DISTRIBUTION WIDTH 13.6 % (11.5-14.0); WHITE BLOOD COUNT 22.8 10^3/uL (4.0-10.5)
[2017-03-29 18:54] LABS: HEMOGLOBIN 8.6 g/dL (12.0-15.5)
[2017-03-29 18:59] LABS: BASOPHILS % (MANUAL) 0 % (0-2); EOSINOPHILS % (MANUAL) 0 % (0-6); LYMPHOCYTES % (MANUAL) 6 % (13-45); TOTAL CELLS COUNTED 100
[2017-03-29 19:00] LABS: SMUDGE CELLS PRESENT
[2017-03-29] MEDS ORDERED: OXYCODONE HCL IR 5 MG TABLET PO PRN ×2 (22:56)
[2017-03-30] MEDS ORDERED: NIFEDIPINE 30 MG TAB.ER.24 PO ONE (05:00)
[2017-03-30 06:24] LABS: HEMATOCRIT 24.2 % (36.0-47.0); HEMOGLOBIN 8.2 g/dL (12.0-15.5); HGB HCT DIFFERENCE 0.4; MEAN CORPUSCULAR HEMOGLOBIN 29.4 pg (27.0-33.4); MEAN CORPUSCULAR HGB CONC 33.8 g/dL (32.0-36.0); MEAN CORPUSCULAR VOLUME 87 fl (80-97); RED BLOOD COUNT 2.78 10^6/uL (3.72-5.28); RED CELL DISTRIBUTION WIDTH 13.8 % (11.5-14.0); WHITE BLOOD COUNT 20.7 10^3/uL (4.0-10.5)
[2017-03-30] MEDS: PRENATAL VITAMIN W-O CA NO5/FE FUMARATE/FA CAPSULE PO SCH (09:23)
[2017-03-30] MEDS: DOCUSATE SODIUM 100 MG CAPSULE PO SCH ×2 (09:23→17:27)
[2017-03-30] MEDS ORDERED: OXYCODONE-ACETAMINOPHEN 5-325 MG TABLET PO PRN (10:09)
--- NOTE | 2017-03-30 10:48 | PDOC PROGRESS REPORT ---
Subjective-OB Subjective: Post Delivery Day: 26 year old. Denies any needs at this time Doing better today, wanting to go to [facility] where baby is, insisting they are going to feed baby today and she needs to be there, pain under control, voiding , eating, ambulating, pumping breasts, passing gas Physical Exam (OB) Vital Signs: Temp Pulse Resp BP Pulse Ox 99.2 F 98 16 169/94 H 100 03/30/17 08:37 03/30/17 08:37 03/30/17 08:37 03/30/17 08:37 03/30/17 08:37 Intake & Output 03/29/17 03/30/17 03/31/17 06:59 06:59 06:59 Intake Total 240 Output Total 10 Balance -10 240 - PIH/Pre-Eclampsia DTR's: 2 + Clonus: Negative Headache: Absent Epigastric Pain: No Visual Changes: No - Dressing Removed: No Incision: Dressing - Lochia Lochia Amount: Scant < 10 ml Lochia Color: Rubra/Red - Abdomen Description: Tender, Soft, Round Hernia Present: No Fundal Description: Firm, Midline Fundal Height: u/u - u/2 Objective-Diagnostic Laboratory: 03/30/17 06:08 03/29/17 18:10 03/29/17 03/29/17 03/29/17 02:20 18:10 18:10 WBC 22.8 H RBC 2.94 L Hgb 8.6 L D Hct 25.6 L MCV 87 MCH 29.2 MCHC 33.6 RDW 13.6 Plt Count 126 L Seg Neutrophils % Not Reportable Lymphocytes % Not Reportable Monocytes % Not Reportable Eosinophils % Not Reportable Basophils % Not Reportable Absolute Neutrophils Not Reportable Absolute Lymphocytes Not Reportable Absolute Monocytes Not Reportable Absolute Eosinophils Not Reportable Absolute Basophils Not Reportable Sodium 136.7 L Potassium 4.3 Chloride 107 Carbon Dioxide 23 Anion Gap 7 BUN 3 L Creatinine 0.45 L Est GFR ( Amer) > 60 Est GFR (Non-Af Amer) > 60 Glucose 84 Uric Acid 4.1 Calcium 7.8 L Total Bilirubin 0.4 AST 35 ALT 32 Alkaline Phosphatase 72 Total Protein 5.6 L Albumin 2.8 L Blood Type O POSITIVE Antibody Screen NEGATIVE 03/30/17 06:08 WBC 20.7 H RBC 2.78 L Hgb 8.2 L Hct 24.2 L MCV 87 MCH 29.4 MCHC 33.8 RDW 13.8 Plt Count 125 L Seg Neutrophils % Lymphocytes % Monocytes % Eosinophils % Basophils % Absolute Neutrophils Absolute Lymphocytes Absolute Monocytes Absolute Eosinophils Absolute Basophils Sodium Potassium Chloride Carbon Dioxide Anion Gap BUN Creatinine Est GFR ( Amer) Est GFR (Non-Af Amer) Glucose Uric Acid Calcium Total Bilirubin AST ALT Alkaline Phosphatase Total Protein Albumin Blood Type Antibody Screen Assessment and Plan(PN) - Assessment and Plan (1) Pre-eclampsia Qualifiers: Trimester: second trimester Qualified Code(s): O14.92 - Unspecified pre-eclampsia, second trimester Is this a current diagnosis for this admission?: Yes (2) Anemia Qualifiers: Anemia type: iron deficiency Is this a current diagnosis for this admission?: Yes (3) Placental abruption in second trimester Is this a current diagnosis for this admission?: Yes - Time Spent with Patient Time with patient: Less than 15 minutes Medications reviewed and adjusted accordingly: Yes - Disposition Anticipated Discharge: Home Within: within 48 hours - Dr. Myers went in to discuss POC with pt. Started on Labrtelol 400 BID
[2017-03-30] MEDS: OXYCODONE-ACETAMINOPHEN 5-325 MG TABLET PO PRN ×2 (10:52→16:17)
[2017-03-30] MEDS ORDERED: LABETALOL HCL 200 MG TABLET PO ONE (11:00)
[2017-03-30] MEDS ORDERED: MAGNESIUM HYDROXIDE SUSP 30 ML UDCUP PO PRN (20:49)
[2017-03-30] MEDS: LABETALOL HCL 200 MG TABLET PO SCH (21:17)
[2017-03-30] MEDS: SIMETHICONE 80 MG TAB.CHEW PO SCH (21:18)
[2017-03-31] MEDS: OXYCODONE-ACETAMINOPHEN 5-325 MG TABLET PO PRN ×2 (00:25→11:18)
[2017-03-31 07:55] LABS: ABSOLUTE EOSINOPHILS # (AUTO) 0.2 10^3/uL (0.0-0.6); ABSOLUTE MONOCYTES (AUTO) 1.1 10^3/uL (0.1-1.4); ABSOLUTE NEUT (AUTO) 12.3 10^3/uL (1.7-8.2); BASOPHILS % (AUTO) 0.2 % (0-2); HEMATOCRIT 25.2 % (36.0-47.0); HEMOGLOBIN 8.4 g/dL (12.0-15.5); LYMPHOCYTES % (AUTO) 18.1 % (13-45); MEAN CORPUSCULAR HEMOGLOBIN 29.7 pg (27.0-33.4); MEAN CORPUSCULAR HGB CONC 33.5 g/dL (32.0-36.0); MEAN CORPUSCULAR VOLUME 89 fl (80-97); MONOCYTES % (AUTO) 6.6 % (3-13); RED BLOOD COUNT 2.84 10^6/uL (3.72-5.28); RED CELL DISTRIBUTION WIDTH 13.8 % (11.5-14.0); SEGMENTED NEUTROPHILS % (AUTO) 74.1 % (42-78); WHITE BLOOD COUNT 16.6 10^3/uL (4.0-10.5)
[2017-03-31] MEDS: LABETALOL HCL 200 MG TABLET PO SCH (09:04)
[2017-03-31] MEDS: SIMETHICONE 80 MG TAB.CHEW PO SCH (09:05)
[2017-03-31] MEDS: PRENATAL VITAMIN W-O CA NO5/FE FUMARATE/FA CAPSULE PO SCH (09:05)
[2017-03-31] MEDS: DOCUSATE SODIUM 100 MG CAPSULE PO SCH (09:06)
[2017-03-31] MEDS ORDERED: NIFEDIPINE 30 MG TAB.ER.24 PO SCH (10:00)
--- NOTE | 2017-03-31 10:08 | PDOC PROGRESS REPORT ---
Subjective-OB Subjective: Post Delivery Day: 2 26 year old. Denies any needs at this time pt desires early d/c to be with her baby who as transferred to [facility], denies grier, visual dist, epigastric pain. Physical Exam (OB) Vital Signs: Temp Pulse Resp BP Pulse Ox 98.7 F 100 16 133/64 H 100 03/31/17 08:57 03/31/17 08:57 03/31/17 08:57 03/31/17 08:57 03/31/17 08:57 Intake & Output 03/30/17 03/31/17 04/01/17 06:59 06:59 06:59 Intake Total 480 Output Total 10 Balance -10 480 - PIH/Pre-Eclampsia DTR's: 2 + Clonus: Negative Headache: Absent Epigastric Pain: No Visual Changes: No - Dressing Removed: No Incision: Dressing - Lochia Lochia Amount: Scant < 10 ml Lochia Color: Rubra/Red - Abdomen Description: Soft, Round Hernia Present: No Fundal Description: Firm, Midline Fundal Height: u/u - u/2 Objective-Diagnostic Laboratory: 03/31/17 07:35 03/29/17 18:10 03/31/17 07:35 WBC 16.6 H RBC 2.84 L Hgb 8.4 L Hct 25.2 L MCV 89 MCH 29.7 MCHC 33.5 RDW 13.8 Plt Count 160 Seg Neutrophils % 74.1 Lymphocytes % 18.1 Monocytes % 6.6 Eosinophils % 1.0 Basophils % 0.2 Absolute Neutrophils 12.3 H Absolute Lymphocytes 3.0 Absolute Monocytes 1.1 Absolute Eosinophils 0.2 Absolute Basophils 0.0 Assessment and Plan(PN) - Assessment and Plan (1) Delivery by emergency Is this a current diagnosis for this admission?: YesPlan: routine post op care (2) Anemia Qualifiers: Anemia type: iron deficiency Is this a current diagnosis for this admission?: YesPlan: ferrous sulfate increase dietary iron (3) Placental abruption in second trimester Is this a current diagnosis for this admission?: YesPlan: continue to monitor (4) Pre-eclampsia Qualifiers: Trimester: second trimester Qualified Code(s): O14.92 - Unspecified pre-eclampsia, second trimester Is this a current diagnosis for this admission?: YesPlan: monitor bp, in office f/u 1 week - Time Spent with Patient Time with patient: Less than 15 minutes Critical Time spent with patient: Less than 15 minutes Medications reviewed and adjusted accordingly: Yes - Disposition Anticipated Discharge: Home Within: within 24 hours
--- NOTE | 2017-03-31 10:10 | PDOC DISCHARGE SUMMARY ---
Final Diagnosis Discharge Date: 03/31/17 - Final Diagnosis (1) Delivery by emergency Is this a current diagnosis for this admission?: Yes (2) Anemia Is this a current diagnosis for this admission?: Yes (3) Placental abruption in second trimester Is this a current diagnosis for this admission?: Yes (4) Pre-eclampsia Is this a current diagnosis for this admission?: Yes Discharge Data - Discharge Medication Home Medications: Docusate Sodium [Colace 100 mg Capsule] 100 mg PO BID #60 capsule 03/31/17 Ferrous Sulfate 325 mg PO BID #60 tablet.dr 03/31/17 Ibuprofen 800 mg PO Q8 #60 tablet 03/31/17 Labetalol HCl [Normodyne 200 mg Tablet] 400 mg PO Q12 #60 tablet 03/31/17 Nifedipine [Procardia XL 30 mg Tablet] 30 mg PO DAILY #30 tab.er.24 03/31/17 Oxycodone HCl/Acetaminophen [Percocet 5-325 mg Tablet] 2 tab PO Q4HP PRN #30 tablet 03/31/17 Gestational Age: 37.4 Reason(s) for Admission: Status, PIH Procedures: NST Intrapartum Procedure(s): Spontaneous Vaginal Delivery - Data Baby 1 Male Weight: 1040 kg Home with Mother: No Complications: Yes - abruption, - Diagnosis Test Laboratory: Temp Pulse Resp BP Pulse Ox 98.7 F 100 16 133/64 H 100 03/31/17 08:57 03/31/17 08:57 03/31/17 08:57 03/31/17 08:57 03/31/17 08:57 03/29/17 03/29/17 03/29/17 02:07 02:20 04:46 RBC 3.54 L 3.85 Hgb 10.2 L 11.1 L Hct 30.7 L 33.3 L Urine Opiates Screen NEGATIVE 03/29/17 03/30/17 03/31/17 18:10 06:08 07:35 RBC 2.94 L 2.78 L 2.84 L Hgb 8.6 L D 8.2 L 8.4 L Hct 25.6 L 24.2 L 25.2 L Urine Opiates Screen - Discharge information/Instructions Discharge Activity: Activity As Tolerated, No Driving, Pelvic Rest, Slowly Increase Activity, No tub bath Discharge Diet: Regular Disposition: HOME, SELF-CARE Follow up with: [facility] in: 1, Weeks
[2017-03-31 11:06] VITALS: BP 146/76
--- NOTE | 2017-04-17 13:42 | DISCHARGE SUMMARY E ---
Discharge Summary NAME: ARNOLD NOLAN : 1990 AGE: 26Y ADMITTED: 03/29/2017 DISCHARGED: 03/31/2017 ADDENDUM: DISCHARGE DIAGNOSIS: Placental abruption at 27+ weeks gestation status post repeat . DICTATING PHYSICIAN: SAGRARIO MERIDA M.D. [id number] PHY#: [id number] ID: [id number] JOB#: [id number] ACCT: [id number] cc:WILL DINERO M.D., JENNIFER M.D. >
== END 2017-03-31 11:38 | disposition home or self-care (01) | DRG 765 ==
LOC: LC 01:37 → LR 02:03 → 2S 17:51
PROVIDERS: ADMIT Student in an Organized Health Care Education/Training Program; ATTEND Student in an Organized Health Care Education/Training Program
PROC: 10D00Z1 Extraction of Products of Conception, Low, Open Approach (ICD-10-PCS; principal; 2017-03-29)
PROC: 4A1HXCZ Monitoring of Products of Conception, Cardiac Rate, External Approach (ICD-10-PCS; 2017-03-29)
PROC: 30233N1 Transfusion of Nonautologous Red Blood Cells into Peripheral Vein, Percutaneous Approach (ICD-10-PCS; 2017-03-29)
PROC: 30233R1 Transfusion of Nonautologous Platelets into Peripheral Vein, Percutaneous Approach (ICD-10-PCS; 2017-03-29)
DX: O45.92 Premature separation of placenta, unspecified, second trimester (principal); O14.92 Unspecified pre-eclampsia, second trimester; O99.02 Anemia complicating childbirth; D50.9 Iron deficiency anemia, unspecified; O76 Abnormality in fetal heart rate and rhythm complicating labor and delivery; Z90.721 Acquired absence of ovaries, unilateral; Z90.79 Acquired absence of other genital organ(s); Z87.891 Personal history of nicotine dependence; Z79.899 Other long term (current) drug therapy; Z3A.27 27 weeks gestation of pregnancy; Z37.0 Single live birth
CPT/HCPCS: 1961; 36415; 36430; 80053; 80307; 81001; 82570; 83615; 84156; 84550; 85025; 85027; 85362; 85384; 85610; 85730; 86592; 86850; 86900; 86901; 86920; 88307; 94799; J0131; J0360; J0690; J0702; J1170; J2270; J2590; J3010; J3475; J3490; P9016; P9017

== ENCOUNTER 2019-09-20 13:15 | Inpatient (IN) | payer OTHER, MEDICAID ==
[2019-09-20] MEDS ORDERED: ONDANSETRON HCL INJ/PF 4 MG/2 ML SDV IV ONE ×2 (13:37→16:11)
[2019-09-20] MEDS ORDERED: NORMAL SALINE 500 ML IV ONE (13:37)
--- NOTE | 2019-09-20 13:40 | ER Document Report ---
ED Medical Screen (RME) - General Chief Complaint: Chest Pain Stated Complaint: POST SURGICAL CONCERN Time Seen by Provider: 09/20/19 13:25 Primary Care Provider: WILL DINERO MD [Primary Care Provider] - Follow up as needed Notes: Patient is a 29-year-old female who presents to the emergency department with a chief complaint of left-sided chest pain and abdominal pain. Patient reports she did have open heart surgery on August 02 in [place]. Patient reports that at that time they had to " shave down a part of her heart that was too thick." Patient reports that about 1 week ago she was discharged from the hospital in [place] after being admitted for 1 week. She states she was admitted to the hospital for syncopal episode. She was discharged and told to follow-up with a liver specialist as her enzymes were elevated. Patient reports since being discharged she has been unable to drink or eat. Patient reports a decreased appetite. Patient reports she has been vomiting. Patient states this morning developing some right lower quadrant abdominal pain. TRAVEL OUTSIDE OF THE [place] IN LAST 30 DAYS: No - Related Data Allergies/Adverse Reactions: No Known Allergies Allergy (Verified 03/29/17 08:13) Home Medications: Procardia. Labetalol Past Medical History - Past Medical History Cardiac Medical History: Reports: Hx Hypertension Renal/ Medical History: Reports: Hx Ovarian Cysts. 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 Will initiate IV fluids, to start just with a 500 mL bolus of saline as the patient is a cardiac patient. I have greeted and performed a rapid initial assessment of this patient. A comprehensive ED assessment and evaluation of the patient, analysis of test results and completion of the medical decision making process will be conducted by additional ED providers. - Vital Signs Vital signs: Temp Pulse Resp BP Pulse Ox 97.4 F 139 H 16 168/118 H 100 09/20/19 13:20 09/20/19 13:20 09/20/19 13:20 09/20/19 13:20 09/20/19 13:20 Doctor's Discharge - Discharge Referrals: WILL DINERO MD [Primary Care Provider] - Follow up as needed
[2019-09-20] MEDS ORDERED: FAMOTIDINE INJ/PF 20 MG/2 ML SDV IV ONE (13:53)
--- NOTE | 2019-09-20 13:58 | RADIOLOGY REPORT (SQ) ---
EXAM DESCRIPTION: CHEST 2 VIEWS COMPLETED DATE/TIME: 09/20/2019 1:49 pm REASON FOR STUDY: left sided chest pain COMPARISON: None. EXAM PARAMETERS: NUMBER OF VIEWS: two views TECHNIQUE: Digital Frontal and Lateral radiographic views of the chest acquired. RADIATION DOSE: NA LIMITATIONS: none FINDINGS: LUNGS AND PLEURA: No opacities, masses or pneumothorax. No pleural effusion. MEDIASTINUM AND HILAR STRUCTURES: No masses or contour abnormalities. HEART AND VASCULAR STRUCTURES: Heart normal size. No evidence for failure. BONES: No acute findings. HARDWARE: Sternotomy wires are in place. OTHER: No other significant finding. IMPRESSION: NO ACUTE RADIOGRAPHIC FINDING IN THE CHEST. TECHNICAL DOCUMENTATION: JOB ID: [id number] [email or web address]- All Rights Reserved Reading location - IP/workstation name: [email or web address]
--- NOTE | 2019-09-20 14:03 | ER Document Report ---
ED General - General Chief Complaint: Chest Pain Stated Complaint: POST SURGICAL CONCERN Time Seen by Provider: 09/20/19 13:25 Notes: 29-year-old female presents with upper abdominal pain nausea and vomiting. For 2 days. Having trouble keeping anything down. No fever no diarrhea. Non- positional pain. No chest pain or shortness of breath. She had cardiac surgery about a month ago in [place] to "rearrange 1 of my arteries" and "shaved some extra off of my heart." She denies postoperative complications and from a cardiac standpoint is feeling quite good. No history of GERD reflux or gallbladder disease. Last menstrual period was 3 days ago. TRAVEL OUTSIDE OF THE [place] IN LAST 30 DAYS: No - Related Data Allergies/Adverse Reactions: No Known Allergies Allergy (Verified 03/29/17 08:13) Home Medications: Procardia. Labetalol Past Medical History - Social History Smoking Status: Never Smoker Family History: CVA, DM, Hyperlipidemia, Hypertension. denies: Arthritis, CAD, COPD Patient has suicidal ideation: No Patient has homicidal ideation: No - Medical History Medical History: Other - Cardiac issues - Past Medical History Cardiac Medical History: Reports: Hx Hypertension Renal/ Medical History: Reports: Hx Ovarian Cysts. 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 - Immunizations Immunizations up to date: Yes Hx Diphtheria, Pertussis, Tetanus Vaccination: Yes - 2009 Review of Systems - Review of Systems Notes: REVIEW OF SYSTEMS GEN: Denies fever, chills, weight loss ENT: Denies sore throat, nasal discharge, ear pain EYES: Denies blurry vision, eye pain, discharge CV: Denies chest pain, palpitations, edema RESP: Denies cough, shortness of breath, wheezing GI: Upper abdominal pain nausea and vomiting MSK: Denies joint pain/swelling, edema, SKIN: Denies rash, skin lesions LYMPH: Denies swollen glands/lymph nodes NEURO: Denies headache, focal weakness or numbness, dizziness PSYCH: Denies depression, suicidal or homicidal ideation PHYSICAL EXAMINATION General: No acute distress, well-nourished Head: Atraumatic, normocephalic ENT: Mouth normal, oropharynx moist, no exudates or tonsillar enlargement Eyes: Conjunctiva normal, pupils equal, lids normal Neck: No JVD, supple, no guarding CVS: Normal rate, regular rhythm, no murmurswell-healed chest tube scars and midline sternotomy Resp: No resp distress, equal and normal breath sounds bilaterally GI: Nondistended, soft, no tenderness to palpation, no rebound or guarding Ext: No deformities, no edema, normal range of motion in upper and lower ext Back: No CVA or midline TTP Skin: No rash, warm Lymphatic: No lymphadeopathy noted Neuro: Awake, alert. Face symmetric. GCS 15. Physical Exam - Vital signs Vitals: Temp Pulse Resp BP Pulse Ox 97.4 F 139 H 16 168/118 H 100 09/20/19 13:20 09/20/19 13:20 09/20/19 13:20 09/20/19 13:20 09/20/19 13:20 Course - Re-evaluation Re-evalutation: 09/20/19 16:13 Patient presents with upper abdominal pain nausea vomiting for a few days in the setting of a recent surgery on her heart. She is not actually sure what was done and based on her explanation I cannot really tell either.? 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 Initially her vitals were okay but after being in the emergency department awaiting labswhich were very slow to returnshe became hypertensive and tachycardic. Still complaining of some back pain which is new. This point and when a CT her chest abdomen pelvis, given that she has a white count 25 looking for aortic dissection mediastinitis or other thoracoabdominal emergency. When given labetalol because at which she was taking prior to stopping on her own, and some pain medication. 09/21/19 11:19 CT no dissection. Opted to start nicardipine however the hospital is out. Discussed with Dr. Park. She came to the ED to evaluate the patient, will be starting night pride and admitting. - Vital Signs Vital signs: Temp Pulse Resp BP Pulse Ox 97.3 F 102 H 19 137/76 H 100 09/21/19 08:00 09/21/19 10:00 09/21/19 10:13 09/21/19 10:13 09/21/19 10:13 - Laboratory Result Diagrams: 09/21/19 04:34 09/21/19 04:34 Laboratory results interpreted by me: 09/20/19 09/20/19 09/20/19 14:37 14:37 15:55 WBC 25.2 H RBC 6.13 H Hgb 16.1 H Hct 48.6 H MCV 79 L MCH 26.2 L RDW 17.2 H Plt Count 478 H Seg Neuts % (Manual) 86 H Lymphocytes % (Manual) 11 L Monocytes % (Manual) 2 L Abs Neuts (Manual) 21.7 H Sodium 132.0 L Chloride 89 L BUN 28 H Creatinine 1.48 H Est GFR ( Amer) 50 L Est GFR (MDRD) Non-Af 41 L Calcium 11.0 H Total Protein 8.7 H Urine Protein >=500 H Urine Ketones TRACE H - Diagnostic Test Radiology reviewed: Image reviewed, Reports reviewed Critical Care Note - Critical Care Note Total time excluding time spent on procedures (mins): 40 Comments: The above patient is critically ill. Not including procedures, but including di rect re-evaluations, speaking with patient and/or consultants, interpreting results, and documenting, I spent the total amount of minute listed listed above on critical care time Discharge - Discharge Clinical Impression: Hypertensive emergency Condition: Critical Disposition: ADMITTED INPATIENT Admitting Provider: Benny (Waist Fitter)
[2019-09-20 14:57] LABS: HEMATOCRIT 48.6 % (36.0-47.0); HEMOGLOBIN 16.1 g/dL (12.0-15.5); MEAN CORPUSCULAR HEMOGLOBIN 26.2 pg (27.0-33.4); MEAN CORPUSCULAR HGB CONC 33.1 g/dL (32.0-36.0); MEAN CORPUSCULAR VOLUME 79 fl (80-97); PLATELET COUNT 478 10^3/uL (150-450); RED BLOOD COUNT 6.13 10^6/uL (3.72-5.28); RED CELL DISTRIBUTION WIDTH 17.2 % (11.5-14.0); WHITE BLOOD COUNT 25.2 10^3/uL (4.0-10.5)
[2019-09-20 15:22] LABS: ABSOLUTE MONOCYTES # (MANUAL) 0.5 10^3/uL (0.1-1.4); BASOPHILS % (MANUAL) 0 % (0-2); EOSINOPHILS % (MANUAL) 0 % (0-6); LYMPHOCYTES % (MANUAL) 11 % (13-45); MONOCYTES % (MANUAL) 2 % (3-13); SEGMENTED NEUTROPHILS % (MAN) 86 % (42-78); TOTAL CELLS COUNTED 100
[2019-09-20 15:23] LABS: HYPOCHROMASIA SLIGHT; POLYCHROMASIA 1+
[2019-09-20 15:24] LABS: ANISOCYTOSIS 1+; TARGET CELLS SLIGHT
[2019-09-20 15:25] LABS: PLATELET COMMENT INCREASED
[2019-09-20] MEDS ORDERED: RINGERS SOLUTION,LACTATED 1,000 ML IV ONE (15:46)
[2019-09-20 16:08] LABS: ALBUMIN 4.7 g/dL (3.5-5.0); ALKALINE PHOSPHATASE 111 U/L (38-126); ANION GAP 16 (5-19); ASPARTATE AMINO TRANSFERASE 35 U/L (14-36); BILIRUBIN,DIRECT 0.4 mg/dL (0.0-0.4); BILIRUBIN,TOTAL 0.6 mg/dL (0.2-1.3); BLOOD UREA NITROGEN 28 mg/dL (7-20); CARBON DIOXIDE 27 mmol/L (22-30); CHLORIDE 89 mmol/L (98-107); GLUCOSE 101 mg/dL (75-110); POTASSIUM 3.6 mmol/L (3.6-5.0); TOTAL PROTEIN 8.7 g/dL (6.3-8.2)
[2019-09-20] MEDS ORDERED: FENTANYL CITRATE INJ/PF 100 MCG/2 ML AMPUL IV ONE (16:11)
[2019-09-20] MEDS ORDERED: LABETALOL HCL INJ 20 MG/4 ML DISP.SYRIN IV ONE (16:11)
[2019-09-20 16:26] LABS: APPEARANCE,URINE SLIGHTLY-CLOUDY; BILIRUBIN,URINE NEGATIVE (NEGATIVE); COLOR,URINE YELLOW; GLUCOSE, URINE NEGATIVE (NEGATIVE); KETONES,URINE TRACE mg/dL (NEGATIVE); LEUKOCYTE ESTERASE,URINE NEGATIVE (NEGATIVE); NITRITE,URINE NEGATIVE (NEGATIVE); PROTEIN,URINE >=500 mg/dL (NEGATIVE); URINE SPECIFIC GRAVITY 1.013; UROBILINOGEN,URINE NEGATIVE mg/dL (<2.0)
[2019-09-20] MEDS ORDERED: NORMAL SALINE 1000 ML 1,000 ML IV ONE (16:46)
--- NOTE | 2019-09-20 16:57 | RADIOLOGY REPORT (SQ) ---
EXAM DESCRIPTION: CTA CHEST COMPLETED DATE/TIME: 09/20/2019 4:43 pm REASON FOR STUDY: CP abd pn COMPARISON: Chest x-ray done earlier the same day. TECHNIQUE: CT scan of the chest performed using helical scanning technique with dynamic intravenous contrast injection. Images reviewed with lung, soft tissue and bone windows. Reconstructed coronal and sagittal MPR images reviewed. Additional 3 dimensional post-processing performed to develop Maximal Intensity Projection images (VT P). All images stored on PACS. All CT scanners at this facility use dose modulation, iterative reconstruction, and/or weight based d osing when appropriate to reduce radiation dose to as low as reasonably achievable (ALARA). [facility]: Dose Right [facility]: CareDose [facility]: Dose Right [facility]: Teradose 4D [facility]: [email or web address] CONTRAST TYPE AND DOSE: 84 mL Omnipaque 350 Contrast bolus adequate for pulmonary arteries and aorta. RENAL FUNCTION: BUN 28, creatinine 1.48 RADIATION DOSE: CT Rad equipment meets quality standard of care and radiation dose reduction techniq ues were employed. CTDIvol: NaN mGy. DLP: 0 mGy-cm. . LIMITATIONS: None. FINDINGS: LUNGS AND PLEURA: No masses, infiltrates, or pneumothorax. No pleural effusions or pleura l calcifications. AORTA AND GREAT VESSELS: No aneurysm. Contrast bolus not optimized for the aorta. HEART: No pericardial effusion. No significant coronary artery calcifications. PULMONARY ARTERIES: No emboli visualized in the main pulmonary arteries or the segmental branches. HILAR AND MEDIASTINAL STRUCTURES: No identified masses or abnormal nodes. HARDWARE: Sternotomy wires are in place. UPPER ABDOMEN: No significant findings. Limited exam. THYROID AND OTHER SOFT TISSUES: No thyroid lesions. Asymmetric apparent atrophy of the right breast. BONES: No acute or significant finding. 3D MIPS: Confirm above findings. OTHER: No other significant finding. IMPRESSION: Normal CT of the chest. No pulmonary emboli. Thoracic aorta is unremarkable. COMMENT: Quality ID # [id number]: Final reports with documentation of one or more dose reduction techniques (e.g., Automated exposure control, adjustment of the mA and/or kV according to patient size, use of iterative reconstruction technique) TECHNICAL DOCUMENTATION: JOB ID: [id number] [employer]- All Rights Reserved Reading location - IP/workstation name: [email or web address]
[2019-09-20] MEDS ORDERED: NICARDIPINE HCL RTU, ISO-OS 20 MG/200 ML RTUINJ IV PRN ×2 (17:00→17:16)
--- NOTE | 2019-09-20 17:00 | RADIOLOGY REPORT (SQ) ---
EXAM DESCRIPTION: CTA ABDOMEN/PELVIS W WO COMPLETED DATE/TIME: 09/20/2019 4:44 pm REASON FOR STUDY: cp abd pn COMPARISON: None. TECHNIQUE: CT scan of the abdominal aorta extending to the iliac bifurcation performed with intraven ous contrast using helical scanning technique with dynamic intravenous contrast injection. Images rev iewed with lung, soft tissue, and bone windows. Reconstructed coronal and sagittal MPR images reviewe d. All images stored on PACS. Advanced 3D imaging as volume rendering, MIPS, SSD performed? yes All CT scanners at this facility use dose modulation, iterative reconstruction, and/or weight based d osing when appropriate to reduce radiation dose to as low as reasonably achievable (ALARA). [facility]: Dose Right [facility]: CareDose [facility]: Dose Right [facility]: Teradose 4D [facility]: G-mode CONTRAST TYPE AND DOSE: contrast/concentration: Isovue 350.00 mg/ml; Total Contrast Delivered: 84.0 ml; Total Saline Delivered: 77.0 ml RENAL FUNCTION: BUN 28, creatinine 1.48 LIMITATIONS: None. FINDINGS: NON-CONTRASTED IMAGING: Post contrast images only. POST-CONTRAST IMAGING: AORTA AND VESSELS: No aneurysm. No dissection. Renal arteries, SMA, celiac without stenosis. There i s narrowing of the celiac axis at its origin consistent with arcuate ligament syndrome. This is no g reater than 50%. LUNG BASES: No significant findings. No nodules or infiltrates. LIVER: Normal size. No masses or dilated ducts. SPLEEN: Normal size. No focal lesions. PANCREAS: No masses. No significant calcifications. No adjacent inflammation or peripancreatic fluid collections. Pancreatic duct not dilated. GALLBLADDER: No identified stones by CT criteria. No inflammatory changes to suggest cholecystitis. ADRENAL GLANDS: No significant masses or asymmetry. RIGHT KIDNEY AND URETER: No mass, calculi or urinary tract obstruction. LEFT KIDNEY AND URETER: No mass, calculi or urinary tract obstruction. RETROPERITONEUM: No retroperitoneal adenopathy, hemorrhage or masses. BOWEL AND PERITONEAL CAVITY: No masses or inflammatory changes. No free fluid or peritoneal masses. APPENDIX: Normal. ABDOMINAL WALL: No masses. No hernias. BONY STRUCTURES: No significant or acute findings. 3-D IMAGING: Confirms the above findings. OTHER: Images through the pelvis demonstrate left adnexal lesions most likely ovarian cysts. The lar gest measures 4.0 cm. IMPRESSION: NO ABDOMINAL AORTIC ANEURYSM, DISSECTION OR SIGNIFICANT STENOSIS. NO SIGNIFICANT FINDING S IN THE ABDOMEN. LEFT ADNEXAL LESIONS MOST LIKELY OVARIAN CYST. THE LARGEST MEASURES 4.0 CM. TECHNICAL DOCUMENTATION: JOB ID: [id number] Quality ID # [id number]: Final reports with documentation of one or more dose reduction techniques (e.g., Au tomated exposure control, adjustment of the mA and/or kV according to patient size, use of iterative reconstruction technique) 2010 [employer]- All Rights Reserved Reading location - IP/workstation name: [email or web address]
[2019-09-20] MEDS ORDERED: NORMAL SALINE 1000 ML 1,000 ML IV PRN (17:11)
[2019-09-20] MEDS ORDERED: LABETALOL HCL INJ 20 MG/4 ML DISP.SYRIN IV PRN (17:18)
[2019-09-20] MEDS ORDERED: HYDRALAZINE HCL INJ/PF 20 MG/1 ML SDV IV PRN (17:19)
[2019-09-20] MEDS ORDERED: CEFTRIAXONE SODIUM 1,000 MG in DEXTROSE 5%-WATER 100 ML IV SCH (17:22)
[2019-09-20] MEDS ORDERED: DEXTROSE 5%-WATER 250 ML with NITROPRUSSIDE SODIUM 50 MG IV PRN ×2 (17:23)
[2019-09-20] MEDS ORDERED: CEFTRIAXONE 1 GM/D5W RTU 1 GM/50 ML RTUPB IV SCH (18:00)
--- NOTE | 2019-09-20 18:01 | CRITICAL CARE ADMISSION REPORT ---
HPI Date:: 09/20/19 Time:: 17:47 Reason for ICU Reason:: Hypertensive urgeny HPI: Pt is a 29 yo woman with HTN who just relocated from [place]. She states she recently underwent heart surgery where they had to "rearrange one of her arteries and then had to shave down some of her heart muscle." She has been on labetalol and procardia for her HTN. However, she decided to institutue lifestyle changes and stop eating red meat and to stop taking her BP meds in the hopes that her lifestyle modification would treat her HTN. Of note, she was hospitalized last week in [place] for syncope. She presents to the ED here c/o nausea, left chest pain, and left back pain. Her SBP in the ED was in the 250s and she got labetalol. Her CTA of the chest, abdomen, and pelvis was negative. Pt was ordered cardene for her BP, but it was unavailable. She states that she just moved here 2 days ago and has not had a chance to establish care with any physicians here. She gets her care through the [place]. - Diagnosis/Plan (1) Hypertensive urgency Is this a current diagnosis for this admission?: Yes (2) HTN (hypertension) Qualifiers: Hypertension type: essential hypertension Qualified Code(s): I10 - Essential (primary) hypertension Is this a current diagnosis for this admission?: Yes (3) CKD (chronic kidney disease) Is this a current diagnosis for this admission?: Yes (4) recent cardiac surgery Is this a current diagnosis for this admission?: Yes (5) Current non-adherence to medical treatment Is this a current diagnosis for this admission?: Yes Past Medical History Cardiac Medical History: Reports: Hypertension Pulmonary Medical History: Reports: None Neurological Medical History: Reports: None Endocrine Medical History: Reports: None Renal/ Medical History: Reports: Chronic Kidney Disease Malignancy Medical History: Reports: None GI Medical History: Reports: None Musculoskeltal Medical History: Reports: None Psychiatric Medical History: Reports: Depression Past Surgical History Past Surgical History: Reports: Section, Other - recent cardiac surgery (pt does not know the name) Social/Family History - Social History Lives with: Parents Smoking Status: Never Smoker Frequency of Alcohol Use: None Hx Recreational Drug Use: No Hx Prescription Drug Abuse: No - Medication/Allergies Home Medications: Labetalol HCl [Normodyne 200 mg Tablet] 200 mg PO TID 09/20/19 Nifedipine [Procardia] 10 mg PO 09/20/19 Allergies/Adverse Reactions: No Known Allergies Allergy (Verified 03/29/17 08:13) Review of Systems All systems: reviewed and no additional remarkable complaints except as stated - as per HPI Physical Exam Vital Signs: Temp Pulse Resp BP Pulse Ox 98.4 F 139 H 10 L 235/206 H 97 09/20/19 16:07 09/20/19 13:20 09/20/19 17:16 09/20/19 17:16 09/20/19 17:16 Intake & Output 09/19/19 09/20/19 09/21/19 06:59 06:59 06:59 Intake Total 500 Balance 500 Weight 52.9 kg Weight/Height Weight 52.9 kg Height 5 ft General appearance: PRESENT: no acute distress, thin, well-developed, well- nourished Respiratory exam: PRESENT: clear to auscultation naga, unlabored Cardiovascular exam: PRESENT: RRR GI/Abdominal exam: PRESENT: soft - non tender, non -distended Extremities exam: PRESENT: other - no ed[place] Musculoskeletal exam: PRESENT: normal inspection Neurological exam: PRESENT: alert, awake, oriented to person, CN II-XII grossly intact Laboratory/Radiographs Laboratory Results: 09/20/19 14:37 09/20/19 14:37 09/20/19 09/20/19 09/20/19 14:37 14:37 14:37 WBC 25.2 H RBC 6.13 H Hgb 16.1 H Hct 48.6 H MCV 79 L MCH 26.2 L MCHC 33.1 RDW 17.2 H Plt Count 478 H Seg Neutrophils % Not Reportable Sodium 132.0 L Potassium 3.6 Chloride 89 L Carbon Dioxide 27 Anion Gap 16 BUN 28 H Creatinine 1.48 H Est GFR ( Amer) 50 L Glucose 101 Calcium 11.0 H Total Bilirubin 0.6 AST 35 Alkaline Phosphatase 111 Total Protein 8.7 H Albumin 4.7 Lipase 143.4 Serum HCG, Qual NEGATIVE Urine Color Urine Appearance Urine pH Ur Specific [place] Urine Protein Urine Glucose (UA) Urine Ketones Urine Blood Urine Nitrite Ur Leukocyte Esterase Urine WBC (Auto) Urine RBC (Auto) 09/20/19 15:55 WBC RBC Hgb Hct MCV MCH MCHC RDW Plt Count Seg Neutrophils % Sodium Potassium Chloride Carbon Dioxide Anion Gap BUN Creatinine Est GFR ( Amer) Glucose Calcium Total Bilirubin AST Alkaline Phosphatase Total Protein Albumin Lipase Serum HCG, Qual Urine Color YELLOW Urine Appearance SLIGHTLY-CLOUDY Urine pH 6.0 Ur Specific [place] 1.013 Urine Protein >=500 H Urine Glucose (UA) NEGATIVE Urine Ketones TRACE H Urine Blood NEGATIVE Urine Nitrite NEGATIVE Ur Leukocyte Esterase NEGATIVE Urine WBC (Auto) 3 Urine RBC (Auto) 2 09/20/19 14:37 Troponin I 0.017 Impressions: Chest X-Ray 09/20/19 13:36 IMPRESSION: NO ACUTE RADIOGRAPHIC FINDING IN THE CHEST. Abdomen/Pelvis CTA 09/20/19 15:36 IMPRESSION: NO ABDOMINAL AORTIC ANEURYSM, DISSECTION OR SIGNIFICANT STENOSIS. NO SIGNIFICANT FINDINGS IN THE ABDOMEN. LEFT ADNEXAL LESIONS MOST LIKELY OVARIAN CYST. THE LARGEST MEASURES 4.0 CM. Chest/Abdomen CTA 09/20/19 15:36 IMPRESSION: Normal CT of the chest. No pulmonary emboli. Thoracic aorta is unremarkable. Critical Time Critical Time (minutes): 50 -: The care of a critically ill patient is dynamic. This note represents a static moment in the admission process. Orders and treatments may be given simultaneously and urgently, and time is not procurement representative of the treatment pr ocess. This patient requires Critical Care secondary to life threatening organ or limb dysfunction. Without Critical Care services, the patient is at risk for increased mortality and morbidity. Provider Note Provider Note: Assessment: 29 yo woman with hypertensive urgency, medication non-adherence, CKD, h/o recent cardiac surgery. Plan: 1. Respiratory: stable on RA 2. CV: hypertensive urgency due to medication non-adherence. s/p recent cardiac surgery, pt does not know exactly what type of surgery she had. SBP initailly in the the 250s. Will start nitroprusside infusion since Cardene is not available. Will resume home labetalol and procardia. Will start prn hydralazine and labetalol IV. 3. Renal: CKD. s/p IV contrast with CTA of chest, abdomen,pelvis. Will start IVF at low rate 4. ID: leukocytosis of unknown cause. Flu pending. Will order blood cultures. Will start rocephin empirically 5. Nutrition: cardiac diet 6. Endocrine: Will order TSH 7. Prophylaxis: sq heparin
[2019-09-20] MEDS ORDERED: NITROPRUSSIDE SODIUM 2 ML IV ONE (18:03)
[2019-09-20] MEDS: ONDANSETRON HCL INJ/PF 4 MG/2 ML SDV IV PRN (19:06)
[2019-09-20 19:07] LABS: URINE AMPHETAMINES SCREEN NEGATIVE; URINE BARBITURATES SCREEN NEGATIVE; URINE BENZODIAZEPINES SCREEN NEGATIVE; URINE COCAINE SCREEN NEGATIVE; URINE MARIJUANA (THC) SCREEN NEGATIVE; URINE METHADONE SCREEN NEGATIVE; URINE PHENCYCLIDINE SCREEN NEGATIVE
[2019-09-20] MEDS: ACETAMINOPHEN 325 MG TABLET PO PRN (20:03)
[2019-09-20] MEDS: NIFEDIPINE 30 MG TAB.ER.24 PO SCH (20:03)
[2019-09-20] MEDS: LABETALOL HCL 200 MG TABLET PO SCH (20:05)
--- NOTE | 2019-09-20 20:46 | EKG REPORT ---
SEVERITY:- ABNORMAL ECG - SINUS TACHYCARDIA KENNA, CONSIDER BIATRIAL ABNORMALITIES LEFT VENTRICULAR HYPERTROPHY LATERAL Q WAVES, PROBABLY NORMAL VARIATION BORDERLINE T ABNORMALITIES, INFERIOR LEADS : Confirmed by: Erika Condon 20-Sep-2019 20:45:09
[2019-09-20] MEDS ORDERED: INFLUENZA QUAD (6MOS+) 2019-20 VAC 0.5 ML SYR IM ONE (21:16)
[2019-09-20] MEDS: HEPARIN SOD (PORCINE) 5,000 UNIT/ML 1 ML VIAL SUBCUT SCH (22:32)
[2019-09-21] MEDS: ACETAMINOPHEN 325 MG TABLET PO PRN ×2 (02:03→09:06)
[2019-09-21 05:09] LABS: HEMATOCRIT 33.1 % (36.0-47.0); MEAN CORPUSCULAR HEMOGLOBIN 26.3 pg (27.0-33.4); MEAN CORPUSCULAR HGB CONC 33.2 g/dL (32.0-36.0); MEAN CORPUSCULAR VOLUME 79 fl (80-97); PLATELET COUNT 327 10^3/uL (150-450); RED BLOOD COUNT 4.17 10^6/uL (3.72-5.28); RED CELL DISTRIBUTION WIDTH 17.2 % (11.5-14.0); WHITE BLOOD COUNT 16.6 10^3/uL (4.0-10.5)
[2019-09-21 05:23] LABS: ANION GAP 7 (5-19); BLOOD UREA NITROGEN 18 mg/dL (7-20); CALCIUM 8.5 mg/dL (8.4-10.2); CARBON DIOXIDE 27 mmol/L (22-30); CHLORIDE 97 mmol/L (98-107); GLUCOSE 99 mg/dL (75-110); POTASSIUM 3.2 mmol/L (3.6-5.0)
[2019-09-21] MEDS: HEPARIN SOD (PORCINE) 5,000 UNIT/ML 1 ML VIAL SUBCUT SCH ×2 (05:39→13:46)
[2019-09-21] MEDS: LABETALOL HCL 200 MG TABLET PO SCH ×2 (05:39→13:46)
[2019-09-21] MEDS: ONDANSETRON HCL INJ/PF 4 MG/2 ML SDV IV PRN (06:51)
[2019-09-21] MEDS: NIFEDIPINE 30 MG TAB.ER.24 PO SCH (09:00)
[2019-09-21] MEDS ORDERED: POTASSIUM CHLORIDE 10 MEQ TABLET.ER PO ONE (10:00)
[2019-09-21] MEDS ORDERED: FUROSEMIDE INJ/PF 40 MG/4 ML SDV IV ONE (10:00)
--- NOTE | 2019-09-21 11:19 | PDOC CRITICAL CARE PROG REPORT ---
General Date:: 09/21/19 - Critical Care Progress Note Resuscitation Status: Full Code Events in the past 12 to 24 Hours:: Pt is off the nipride drip. Has no complaints. Reason for ICU Addmission:: Hypertensive urgeny Physical Exam Vital Signs: Temp Pulse Resp BP Pulse Ox 97.3 F 102 H 19 137/76 H 100 09/21/19 08:00 09/21/19 10:00 09/21/19 10:13 09/21/19 10:13 09/21/19 10:13 Intake & Output 09/20/19 09/21/19 09/22/19 06:59 06:59 06:59 Intake Total 3692 Output Total 300 0 Balance 3392 0 Weight 55.6 kg Weight/Height Weight 55.6 kg Height 5 ft General appearance: PRESENT: no acute distress, well-developed, well-nourished Head exam: PRESENT: atraumatic, normocephalic Respiratory exam: PRESENT: clear to auscultation naga, unlabored Cardiovascular exam: PRESENT: RRR, systolic murmur - III/ REBECCA GI/Abdominal exam: PRESENT: soft Extremities exam: PRESENT: other - no edema Laboratory/Radiographs Laboratory Results: 09/21/19 04:34 09/21/19 04:34 09/20/19 09/20/19 09/20/19 14:37 14:37 14:37 WBC 25.2 H RBC 6.13 H Hgb 16.1 H Hct 48.6 H MCV 79 L MCH 26.2 L MCHC 33.1 RDW 17.2 H Plt Count 478 H Seg Neutrophils % Not Reportable Sodium 132.0 L Potassium 3.6 Chloride 89 L Carbon Dioxide 27 Anion Gap 16 BUN 28 H Creatinine 1.48 H Est GFR ( Amer) 50 L Glucose 101 Calcium 11.0 H Total Bilirubin 0.6 AST 35 Alkaline Phosphatase 111 Total Protein 8.7 H Albumin 4.7 Lipase 143.4 TSH Serum HCG, Qual NEGATIVE Urine Color Urine Appearance Urine pH Ur Specific [place] Urine Protein Urine Glucose (UA) Urine Ketones Urine Blood Urine Nitrite Ur Leukocyte Esterase Urine WBC (Auto) Urine RBC (Auto) 09/20/19 09/21/19 09/21/19 15:55 04:34 04:34 WBC 16.6 H RBC 4.17 Hgb 11.0 L D Hct 33.1 L MCV 79 L MCH 26.3 L MCHC 33.2 RDW 17.2 H Plt Count 327 Seg Neutrophils % Sodium 130.5 L Potassium 3.2 L Chloride 97 L Carbon Dioxide 27 Anion Gap 7 BUN 18 Creatinine 1.16 Est GFR ( Amer) > 60 Glucose 99 Calcium 8.5 Total Bilirubin AST Alkaline Phosphatase Total Protein Albumin Lipase TSH Serum HCG, Qual Urine Color YELLOW Urine Appearance SLIGHTLY-CLOUDY Urine pH 6.0 Ur Specific [place] 1.013 Urine Protein >=500 H Urine Glucose (UA) NEGATIVE Urine Ketones TRACE H Urine Blood NEGATIVE Urine Nitrite NEGATIVE Ur Leukocyte Esterase NEGATIVE Urine WBC (Auto) 3 Urine RBC (Auto) 2 09/21/19 04:34 WBC RBC Hgb Hct MCV MCH MCHC RDW Plt Count Seg Neutrophils % Sodium Potassium Chloride Carbon Dioxide Anion Gap BUN Creatinine Est GFR ( Amer) Glucose Calcium Total Bilirubin AST Alkaline Phosphatase Total Protein Albumin Lipase TSH 0.57 Serum HCG, Qual Urine Color Urine Appearance Urine pH Ur Specific [place] Urine Protein Urine Glucose (UA) Urine Ketones Urine Blood Urine Nitrite Ur Leukocyte Esterase Urine WBC (Auto) Urine RBC (Auto) 09/20/19 14:37 Troponin I 0.017 Impressions: Chest X-Ray 09/20/19 13:36 IMPRESSION: NO ACUTE RADIOGRAPHIC FINDING IN THE CHEST. Abdomen/Pelvis CTA 09/20/19 15:36 IMPRESSION: NO ABDOMINAL AORTIC ANEURYSM, DISSECTION OR SIGNIFICANT STENOSIS. NO SIGNIFICANT FINDINGS IN THE ABDOMEN. LEFT ADNEXAL LESIONS MOST LIKELY OVARIAN CYST. THE LARGEST MEASURES 4.0 CM. Chest/Abdomen CTA 09/20/19 15:36 IMPRESSION: Normal CT of the chest. No pulmonary emboli. Thoracic aorta is unremarkable. Assessment and Plan - Diagnosis (1) Hypertensive urgency Is this a current diagnosis for this admission?: Yes (2) HTN (hypertension) Qualifiers: Hypertension type: essential hypertension Qualified Code(s): I10 - Essential (primary) hypertension Is this a current diagnosis for this admission?: Yes (3) CKD (chronic kidney disease) Is this a current diagnosis for this admission?: Yes (4) recent cardiac surgery Is this a current diagnosis for this admission?: Yes (5) Current non-adherence to medical treatment Is this a current diagnosis for this admission?: Yes Plan Summary: Assessment: 29 yo woman with hypertensive urgency, medication non-adherence, CKD, h/o recent cardiac surgery. Plan: 1. Respiratory: stable on RA 2. CV: hypertensive urgency due to medication non-adherence. s/p recent cardiac surgery, pt does not know exactly what type of surgery she had. SBP initailly in the the 250s. Nipride has been weaned to off and SBP is in the 150s. Continue labetalol and procardia. Will give lasix. Will request medical records 3. Renal: CKD. LANIE, resolving. Cr is decreasing. Will d/c IVF. 4. ID: leukocytosis of unknown cause, resolving. Pt refused to be tested for the flu. Cultures pending. Day 2 rocephin. 5. Nutrition: cardiac diet 6. Endocrine: monitoring blood sugars 7. Prophylaxis: sq heparin 8. Continue to monitor in the ICU Critical Time Critical Time (minutes): 0 - level three follow-up visit Level of Care: ICU -: 1. The care of a critical patient is a dynamic process. This note is a field representative/health education synopsis but static in nature. The timeframe for treatments given in order is not necessarily the actual time these treatments may have been done. 2. This patient requires critical care secondary to ongoing requirements for therapy not offered or safe outside the critical care environment. Transfer to a lower level of care will result in altered life or limb morbidity and mortality. 3. Multidisciplinary rounds completed. 4. ABCDE bundle addressed.
[2019-09-21 14:10] VITALS: BP 160/91
--- NOTE | 2019-09-21 14:28 | Progress Note ---
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
--- NOTE | 2019-09-21 15:12 | Progress Note ---
Provider Note Provider Note: Critical Care Attending Note. Pt requests to be discharged from hospital. States she is having issues with childcare. Her SBP is in the 130s. She has been off nipride since 7 am. I have stressed the importance of her taking her BP meds. She states she understands and promises to take them. She will establish care at the [place]. I will d/c pt home.
--- NOTE | 2019-09-21 15:28 | PDOC DISCHARGE SUMMARY ---
Impression - Admit/DC Date/PCP Admission Date/Primary Care Provider: 09/20/19 18:06 [facility] Discharge Date: 09/21/19 - Discharge Diagnosis (1) Hypertensive urgency Is this a current diagnosis for this admission?: Yes (2) HTN (hypertension) Is this a current diagnosis for this admission?: Yes (3) CKD (chronic kidney disease) Is this a current diagnosis for this admission?: Yes (4) Current non-adherence to medical treatment Is this a current diagnosis for this admission?: Yes (5) Anomalous right coronary artery Is this a current diagnosis for this admission?: Yes - Additional Information Resuscitation Status: Full Code Discharge Diet: Cardiac Discharge Activity: Activity As Tolerated Referrals: [facility] [Primary Care Provider] - Prescriptions: Labetalol HCl [Normodyne 200 mg Tablet] 200 mg PO Q8 #90 tablet Nifedipine [Procardia XL 30 mg Tablet] 30 mg PO DAILY #30 tab.er.[id number] Home Medications: Labetalol HCl [Normodyne 200 mg Tablet] 200 mg PO Q8 PRN 09/20/19 Nifedipine [Procardia] 10 mg PO 09/20/19 Labetalol HCl [Normodyne 200 mg Tablet] 200 mg PO Q8 #90 tablet 09/21/19 Nifedipine [Procardia XL 30 mg Tablet] 30 mg PO DAILY #30 tab.er.24 09/21/19 History of Present Illiness History of Present Illness: Pt is a 29 yo woman with HTN who just relocated from [place]. She states she recently underwent heart surgery where they had to "rearrange one of her arteries and then had to shave down some of her heart muscle." She has been on labetalol and procardia for her HTN. However, she decided to institutue lifestyle changes and stop eating red meat and to stop taking her BP meds in the hopes that her lifestyle modification would treat her HTN. Of note, she was hospitalized last week in [place] for syncope. She presents to the ED here c/o nausea, left chest pain, and left back pain. Her SBP in the ED was in the 250s and she got labetalol. Her CTA of the chest, abdomen, and pelvis was negative. Pt was ordered cardene for her BP, but it was unavailable. She states that she just moved here 2 days ago and has not had a chance to establish care with any physicians here. She gets her care through the [place]. Hospital Course Hospital Course: Assessment: 29 yo woman with hypertensive urgency, medication non-adherence, CKD, h/o anomalous right coronary artery and hypertrophic cardiomyopathy. s/p repair on 07/28/19. Plan: 1. Respiratory: stable on RA 2. CV: hypertensive urgency due to medication non-adherence. Nipride has been stopped. Pt was started on labetalol and procardia. She also got lasix today. SBP in the 130s. Pt has h/o anomalous right coronary artery and hypertrophic cardiomyopathy. She underwent repair on 07/28/19 at [facility]. 3. Renal: CKD. LANIE, resolved. 4. ID: leukocytosis, chronic. Will d/c rocephing 5. Nutrition: cardiac diet 6. Endocrine: monitoring blood sugars 7. Will d/c pt home at her request. Have stressed the importance of her taking her BP meds. She promises to take them. She will establish care at the [place] for follow-up. Physical Exam Vital Signs: Temp Pulse Resp BP Pulse Ox 98.5 F 110 H 13 160/91 H 100 09/21/19 12:00 09/21/19 14:00 09/21/19 14:00 09/21/19 14:00 09/21/19 14:00 Intake & Output 09/20/19 09/21/19 09/22/19 06:59 06:59 06:59 Intake Total 3692 Output Total 300 900 Balance 3392 -900 Weight 55.6 kg 55.6 kg General appearance: PRESENT: no acute distress, well-developed, well-nourished Head exam: PRESENT: atraumatic, normocephalic Respiratory exam: PRESENT: clear to auscultation naga, unlabored Cardiovascular exam: PRESENT: RRR, systolic murmur Musculoskeletal exam: PRESENT: normal inspection Results Laboratory Results: WBC 16.6 10^3/uL (4.0-10.5) H 09/21/19 04:34 RBC 4.17 10^6/uL (3.72-5.28) 09/21/19 04:34 Hgb 11.0 g/dL (12.0-15.5) L D 09/21/19 04:34 Hct 33.1 % (36.0-47.0) L 09/21/19 04:34 MCV 79 fl (80-97) L 09/21/19 04:34 MCH 26.3 pg (27.0-33.4) L 09/21/19 04:34 MCHC 33.2 g/dL (32.0-36.0) 09/21/19 04:34 RDW 17.2 % (11.5-14.0) H 09/21/19 04:34 Plt Count 327 10^3/uL (150-450) 09/21/19 04:34 Lymph % (Auto) Not Reportable 09/20/19 14:37 [place] % (Auto) Not Reportable 09/20/19 14:37 Eos % (Auto) Not Reportable 09/20/19 14:37 Baso % (Auto) Not Reportable 09/20/19 14:37 Absolute Neuts (auto) Not Reportable 09/20/19 14:37 Absolute Lymphs (auto) Not Reportable 09/20/19 14:37 Absolute Monos (auto) Not Reportable 09/20/19 14:37 Absolute Eos (auto) Not Reportable 09/20/19 14:37 Absolute Basos (auto) Not Reportable 09/20/19 14:37 Total Counted 100 09/20/19 14:37 Seg Neutrophils % Not Reportable 09/20/19 14:37 Seg Neuts % (Manual) 86 % (42-78) H 09/20/19 14:37 Lymphocytes % (Manual) 11 % (13-45) L 09/20/19 14:37 Atypical Lymphs % 1 % (0) 09/20/19 14:37 Monocytes % (Manual) 2 % (3-13) L 09/20/19 14:37 Eosinophils % (Manual) 0 % (0-6) 09/20/19 14:37 Basophils % (Manual) 0 % (0-2) 09/20/19 14:37 Abs Neuts (Manual) 21.7 10^3/uL (1.7-8.2) H 09/20/19 14:37 Abs Lymphs (Manual) 3.0 10^3/uL (0.5-4.7) 09/20/19 14:37 Abs Monocytes (Manual) 0.5 10^3/uL (0.1-1.4) 09/20/19 14:37 Absolute Eos (Manual) 0.0 10^3/uL (0.0-0.6) 09/20/19 14:37 Abs Basophils (Manual) 0.0 10^3/uL (0.0-0.2) 09/20/19 14:37 Platelet Comment INCREASED 09/20/19 14:37 Polychromasia 1+ 09/20/19 14:37 Hypochromasia SLIGHT 09/20/19 14:37 Anisocytosis 1+ 09/20/19 14:37 Microcytosis SLIGHT 09/20/19 14:37 Target Cells SLIGHT 09/20/19 14:37 Sodium 130.5 mmol/L (137-145) L 09/21/19 04:34 Potassium 3.2 mmol/L (3.6-5.0) L 09/21/19 04:34 Chloride 97 mmol/L (98-107) L 09/21/19 04:34 Carbon Dioxide 27 mmol/L (22-30) 09/21/19 04:34 Anion Gap 7 (5-19) 09/21/19 04:34 BUN 18 mg/dL (7-20) 09/21/19 04:34 Creatinine 1.16 mg/dL (0.52-1.25) 09/21/19 04:34 Est GFR ( Amer) > 60 (>60) 09/21/19 04:34 Est GFR (MDRD) Non-Af 55 (>60) L 09/21/19 04:34 Glucose 99 mg/dL (75-110) 09/21/19 04:34 Calcium 8.5 mg/dL (8.4-10.2) 09/21/19 04:34 Total Bilirubin 0.6 mg/dL (0.2-1.3) 09/20/19 14:37 Direct Bilirubin 0.4 mg/dL (0.0-0.4) 09/20/19 14:37 Neonat Total Bilirubin Not Reportable 09/20/19 14:37 Neonat Direct Bilirubin Not Reportable 09/20/19 14:37 Neonat Indirect Bili Not Reportable 09/20/19 14:37 AST 35 U/L (14-36) 09/20/19 14:37 ALT 19 U/L (<35) 09/20/19 14:37 Alkaline Phosphatase 111 U/L (38-126) 09/20/19 14:37 Troponin I 0.017 ng/mL 09/20/19 14:37 Total Protein 8.7 g/dL (6.3-8.2) H 09/20/19 14:37 Albumin 4.7 g/dL (3.5-5.0) 09/20/19 14:37 Lipase 143.4 U/L (23-300) 09/20/19 14:37 TSH 0.57 uIU/mL (0.47-4.68) 09/21/19 04:34 Serum HCG, Qual NEGATIVE (NEGATIVE) 09/20/19 14:37 Urine Color YELLOW 09/20/19 15:55 Urine Appearance SLIGHTLY-CLOUDY 09/20/19 15:55 Urine pH 6.0 (5.0-9.0) 09/20/19 15:55 Ur Specific [place] 1.013 09/20/19 15:55 Urine Protein >=500 mg/dL (NEGATIVE) H 09/20/19 15:55 Urine Glucose (UA) NEGATIVE mg/dL (NEGATIVE) 09/20/19 15:55 Urine Ketones TRACE mg/dL (NEGATIVE) H 09/20/19 15:55 Urine Blood NEGATIVE (NEGATIVE) 09/20/19 15:55 Urine Nitrite NEGATIVE (NEGATIVE) 09/20/19 15:55 Urine Bilirubin NEGATIVE (NEGATIVE) 09/20/19 15:55 Urine Urobilinogen NEGATIVE mg/dL (<2.0) 09/20/19 15:55 Ur Leukocyte Esterase NEGATIVE (NEGATIVE) 09/20/19 15:55 Urine WBC (Auto) 3 /HPF 09/20/19 15:55 Urine RBC (Auto) 2 /HPF 09/20/19 15:55 U Hyaline Cast (Auto) 20 /LPF 09/20/19 15:55 Urine Bacteria (Auto) TRACE /HPF 09/20/19 15:55 Squamous Epi Cells Auto 3 /HPF 09/20/19 15:55 Urine Mucus (Auto) RARE /LPF 09/20/19 15:55 Urine Ascorbic Acid NEGATIVE (NEGATIVE) 09/20/19 15:55 Urine HCG, Qual NEGATIVE (NEGATIVE) 09/20/19 15:55 Urine Opiates Screen NEGATIVE 09/20/19 15:55 Urine Methadone Screen NEGATIVE 09/20/19 15:55 Ur Barbiturates Screen NEGATIVE 09/20/19 15:55 Ur Phencyclidine Scrn NEGATIVE 09/20/19 15:55 Ur Amphetamines Screen NEGATIVE 09/20/19 15:55 U Benzodiazepines Scrn NEGATIVE 09/20/19 15:55 Urine Cocaine Screen NEGATIVE 09/20/19 15:55 U Marijuana (THC) Screen NEGATIVE 09/20/19 15:55 09/20/19 14:37 Troponin I 0.017 Impressions: Chest X-Ray 09/20/19 13:36 IMPRESSION: NO ACUTE RADIOGRAPHIC FINDING IN THE CHEST. Abdomen/Pelvis CTA 09/20/19 15:36 IMPRESSION: NO ABDOMINAL AORTIC ANEURYSM, DISSECTION OR SIGNIFICANT STENOSIS. NO SIGNIFICANT FINDINGS IN THE ABDOMEN. LEFT ADNEXAL LESIONS MOST LIKELY OVARIAN CYST. THE LARGEST MEASURES 4.0 CM. Chest/Abdomen CTA 09/20/19 15:36 IMPRESSION: Normal CT of the chest. No pulmonary emboli. Thoracic aorta is unremarkable. Plan Critical Time: 0 Level of Care: TELE Stroke Is this a Stroke Patient?: No Acute Heart Failure - Is this a Heart Failure Patient?: No
== END 2019-09-21 15:50 | disposition home or self-care (01) | DRG 305 ==
LOC: ER 13:15 → EH 18:06 → ICU 20:25
PROVIDERS: ADMIT Internal Medicine; ATTEND Internal Medicine
DX: I16.0 Hypertensive urgency (principal); T44.8X6A Underdosing of centrally-acting and adrenergic-neuron-blocking agents, initial encounter; T46.1X6A Underdosing of calcium-channel blockers, initial encounter; I12.9 Hypertensive chronic kidney disease with stage 1 through stage 4 chronic kidney disease, or unspecified chronic kidney disease; N18.9 Chronic kidney disease, unspecified; D64.9 Anemia, unspecified; Z87.798 Personal history of other (corrected) congenital malformations; Z91.128 Patient's intentional underdosing of medication regimen for other reason; Z98.890 Other specified postprocedural states
CPT/HCPCS: 36415; 71046; 71275; 74174; 80048; 80053; 80307; 81001; 81025; 83690; 84443; 84484; 84703; 85025; 85027; 87040; 87077; 87150; 93005; 93010; 96361; 96374; 96375; 96376; 99238; 99291; J0360; J0696; J1644; J1940; J2405; J3010; J3490; J7030; J7040; J7060; J7120; S0028